=== PATIENT | female | born 1980 | race Two or more races ===

== ENCOUNTER 2017-04-18 09:44 | Emergency (ER) | payer SELFPAY ==
--- NOTE | 2017-04-18 10:02 | ER Document Report ---
ED Medical Screen (RME) - General Chief Complaint: Dizziness Stated Complaint: WEAKNESS Time Seen by Provider: 04/18/17 09:59 Mode of Arrival: Ambulatory Information source: Patient Notes: This is a 37-year-old female with a history of B12 deficiency who presents to the emergency room with dizziness and generalized weakness for the past week. Patient states that she is under a lot of stress with family. She denies any chest pain, shortness of breath, abdominal pain. She has had a hysterectomy in the past. She does take Xanax for anxiety (followed at [facility]) but has not required any for the past 3 weeks. Her only other medicine includes B12 shots ( followed up antibiotic) and Ambien for sleep. Patient denies any suicidal ideations. She does not wish to speak to a psychiatric counselor at this time. TRAVEL OUTSIDE OF THE [place] IN LAST 30 DAYS: No - Related Data Allergies/Adverse Reactions: No Known Allergies Allergy (Verified 04/18/17 09:50) Past Medical History - Past Medical History Cardiac Medical History: Reports: Hx Hypercholesterolemia Denies: Hx Coronary Artery Disease, Hx Heart Attack, Hx Hypertension Pulmonary Medical History: Denies: Hx Asthma, Hx Bronchitis, Hx COPD, Hx Pneumonia Neurological Medical History: Denies: Hx Cerebrovascular Accident, Hx Seizures Renal/ Medical History: Reports: Hx Kidney Stones. Denies: Hx Peritoneal Dialysis Musculoskeltal Medical History: Denies Hx Arthritis Psychiatric Medical History: Reports: Hx Anxiety, Hx Depression - and anxiety, Hx Post Traumatic Stress Disorder Past Surgical History: Reports: Hx Dilation and Curettage, Hx Gynecologic Surgery - D&C, Hx Hysterectomy, Hx Kidney (Renal Surgery) - lithotripsy - Immunizations Immunizations up to date: Yes Hx Diphtheria, Pertussis, Tetanus Vaccination: No - Not sure Physical Exam - Vital signs Vitals: Temp Pulse Resp BP Pulse Ox 98.8 F 78 14 136/94 H 100 04/18/17 09:50 04/18/17 09:50 04/18/17 09:50 04/18/17 09:50 04/18/17 09:50 Course - Vital Signs Vital signs: Temp Pulse Resp BP Pulse Ox 98.8 F 78 14 136/94 H 100 04/18/17 09:50 04/18/17 09:50 04/18/17 09:50 04/18/17 09:50 04/18/17 09:50
[2017-04-18 10:21] LABS: ABSOLUTE BASOPHILS # (AUTO) 0.1 10^3/uL (0.0-0.2); ABSOLUTE EOSINOPHILS # (AUTO) 0.1 10^3/uL (0.0-0.6); ABSOLUTE LYMPHOCYTES (AUTO) 2.1 10^3/uL (0.5-4.7); ABSOLUTE MONOCYTES (AUTO) 0.5 10^3/uL (0.1-1.4); ABSOLUTE NEUT (AUTO) 5.7 10^3/uL (1.7-8.2); BASOPHILS % (AUTO) 0.8 % (0-2); EOSINOPHILS % (AUTO) 1.5 % (0-6); HEMATOCRIT 44.2 % (36.0-47.0); HEMOGLOBIN 15.7 g/dL (12.0-15.5); HGB HCT DIFFERENCE 2.9; LYMPHOCYTES % (AUTO) 24.8 % (13-45); MEAN CORPUSCULAR HEMOGLOBIN 34.4 pg (27.0-33.4); MEAN CORPUSCULAR HGB CONC 35.6 g/dL (32.0-36.0); MEAN CORPUSCULAR VOLUME 97 fl (80-97); MONOCYTES % (AUTO) 6.2 % (3-13); RED BLOOD COUNT 4.56 10^6/uL (3.72-5.28); RED CELL DISTRIBUTION WIDTH 12.7 % (11.5-14.0); SEGMENTED NEUTROPHILS % (AUTO) 66.7 % (42-78); WHITE BLOOD COUNT 8.6 10^3/uL (4.0-10.5)
[2017-04-18 10:37] LABS: BLOOD UREA NITROGEN 12 mg/dL (7-20); CALCIUM 9.9 mg/dL (8.4-10.2); CARBON DIOXIDE 22 mmol/L (22-30); CHLORIDE 108 mmol/L (98-107); CREATININE RESULT 0.77 mg/dL (0.52-1.25); GLUCOSE 112 mg/dL (75-110); POTASSIUM 4.4 mmol/L (3.6-5.0); SODIUM 141.3 mmol/L (137-145)
[2017-04-18 10:38] LABS: ANION GAP 11 (5-19)
[2017-04-18 10:56] LABS: APPEARANCE,URINE CLEAR; BILIRUBIN,URINE NEGATIVE (NEGATIVE); GLUCOSE, URINE NEGATIVE (NEGATIVE); KETONES,URINE NEGATIVE (NEGATIVE); LEUKOCYTE ESTERASE,URINE NEGATIVE (NEGATIVE); NITRITE,URINE NEGATIVE (NEGATIVE); PROTEIN,URINE NEGATIVE (NEGATIVE); URINE SPECIFIC GRAVITY 1.005; UROBILINOGEN,URINE NEGATIVE mg/dL (<2.0)
--- NOTE | 2017-04-18 11:15 | ER Document Report ---
ED General - General Chief Complaint: Dizziness Stated Complaint: WEAKNESS Time Seen by Provider: 04/18/17 09:59 Mode of Arrival: Ambulatory Information source: Patient TRAVEL OUTSIDE OF THE [place] IN LAST 30 DAYS: No - HPI Patient complains to provider of: Dizziness Onset: This morning Onset/Duration: Intermittent Quality of pain: No pain Associated symptoms: Headache, Nausea Exacerbated by: Standing, Movement Relieved by: Denies Notes: Patient is a 37-year-old female presenting to the emergency room today complaining of dizziness which has been intermittent for the past few days but worsening this morning, is associated with a mild headache and nausea at times, no vomiting, no fever chills, no sinus pain or congestion, no chest pain or shortness of breath, no recent illness or injury, symptoms worsen with certain changes in position, patient states she has been eating and drinking well, and has some generalized weakness or malaise as well - Related Data Allergies/Adverse Reactions: No Known Allergies Allergy (Verified 04/18/17 09:50) Past Medical History - General Information source: Patient - Social History Smoking Status: Current Every Day Smoker Chew tobacco use (# tins/day): No Frequency of alcohol use: None Drug Abuse: None Family History: None - Past Medical History Cardiac Medical History: Reports: Hx Hypercholesterolemia Denies: Hx Coronary Artery Disease, Hx Heart Attack, Hx Hypertension Pulmonary Medical History: Denies: Hx Asthma, Hx Bronchitis, Hx COPD, Hx Pneumonia Neurological Medical History: Denies: Hx Cerebrovascular Accident, Hx Seizures Renal/ Medical History: Reports: Hx Kidney Stones. Denies: Hx Peritoneal Dialysis Musculoskeltal Medical History: Denies Hx Arthritis Psychiatric Medical History: Reports: Hx Anxiety, Hx Depression - and anxiety, Hx Post Traumatic Stress Disorder Past Surgical History: Reports: Hx Dilation and Curettage, Hx Gynecologic Surgery - D&C, Hx Hysterectomy, Hx Kidney (Renal Surgery) - lithotripsy - Immunizations Immunizations up to date: Yes Hx Diphtheria, Pertussis, Tetanus Vaccination: No - Not sure Review of Systems - Review of Systems Constitutional: Weakness EENT: No symptoms reported Cardiovascular: Dizziness Respiratory: No symptoms reported Gastrointestinal: Nausea Genitourinary: No symptoms reported Female Genitourinary: No symptoms reported Musculoskeletal: No symptoms reported Skin: No symptoms reported Hematologic/Lymphatic: No symptoms reported Neurological/Psychological: Headaches -: Yes All other systems reviewed and negative Physical Exam - Vital signs Vitals: Temp Pulse Resp BP Pulse Ox 98.8 F 78 14 136/94 H 100 04/18/17 09:50 04/18/17 09:50 04/18/17 09:50 04/18/17 09:50 04/18/17 09:50 Interpretation: Normal - General General appearance: Appears well, Alert - HEENT Head: Normocephalic, Atraumatic Eyes: Normal Pupils: PERRL - Respiratory Respiratory status: No respiratory distress Chest status: Nontender Breath sounds: Normal Chest palpation: Normal - Cardiovascular Rhythm: Regular Heart sounds: Normal auscultation Murmur: No - Abdominal Inspection: Normal Distension: No distension Bowel sounds: Normal Tenderness: Nontender Organomegaly: No organomegaly - Back Back: Normal, Nontender - Extremities General upper extremity: Normal inspection, Nontender, Normal color, Normal ROM , Normal temperature General lower extremity: Normal inspection, Nontender, Normal color, Normal ROM , Normal temperature, Normal weight bearing. No: Angela's sign - Neurological Neuro grossly intact: Yes Cognition: Normal Orientation: AAOx4 [place] Coma Scale Eye Opening: Spontaneous [place] Coma Scale Verbal: Oriented [place] Coma Scale Motor: Obeys Commands Esteban Coma Scale Total: 15 Speech: Normal Motor strength normal: LUE, RUE, LLE, RLE Sensory: Normal - Psychological Associated symptoms: Tearful - Skin Skin Temperature: Warm Skin Moisture: Dry Skin Color: Normal Course - Re-evaluation Re-evalutation: 04/18/17 13:32 Patient was tearful at time of evaluation, admits to increased stressors, denies suicidal or homicidal ideation, she is followed as [facility] psychological services, is prescribed medication which she states she does not take because she does not believe in it, lab and physical exam findings today are unremarkable, symptoms likely related to anxiety or stress, patient was advised to follow-up with her mental health provider in the next 1-2 days return if symptoms worsen, patient acknowledges understanding and agreement with this plan - Vital Signs Vital signs: Temp Pulse Resp BP Pulse Ox 98.2 F 64 17 116/89 H 100 04/18/17 11:32 04/18/17 11:32 04/18/17 11:32 04/18/17 11:32 04/18/17 11:32 - Laboratory Result Diagrams: 04/18/17 10:12 04/18/17 10:12 Laboratory results interpreted by me: 04/18/17 04/18/17 10:12 10:12 Hgb 15.7 H MCH 34.4 H Chloride 108 H Glucose 112 H Discharge - Discharge Clinical Impression: Dizziness, Anxiety Condition: Stable Disposition: HOME, SELF-CARE Instructions: Anxiety ([facility]), Dizziness ([facility]) Additional Instructions: Follow up with your primary care provider and mental health provider in one to 2 days. Return to the emergency room immediately if symptoms worsen or any additional concerns. Prescriptions: Diazepam [Valium 5 mg Tablet] 2.5 mg PO QIDP PRN #10 tablet PRN Reason: Forms: Return to Work Referrals: ENDER HARDY PA-C [Primary Care Provider] - Follow up as needed
[2017-04-18 11:32] VITALS: BP 116/89
== END 2017-04-18 11:32 | disposition home or self-care (01) ==
LOC: ER 09:44
DX: R42 Dizziness and giddiness (principal); F41.9 Anxiety disorder, unspecified; F17.200 Nicotine dependence, unspecified, uncomplicated
CPT/HCPCS: 36415; 80048; 81001; 81025; 84443; 85025; 99284

== ENCOUNTER 2017-08-12 17:14 | Emergency (ER) | payer OTHER ==
[2017-08-12] MEDS ORDERED: METHOCARBAMOL 500 MG TABLET PO ONE (17:59)
[2017-08-12] MEDS ORDERED: ACETAMINOPHEN 325 MG TABLET PO ONE (17:59)
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
[2017-08-12 19:20] VITALS: BP 122/76
== END 2017-08-12 19:44 | disposition home or self-care (01) ==
LOC: ER 17:14
DX: S16.1XXA Strain of muscle, fascia and tendon at neck level, initial encounter (principal); R51 Headache; V89.2XXA Person injured in unspecified motor-vehicle accident, traffic, initial encounter; F17.200 Nicotine dependence, unspecified, uncomplicated; E78.00 Pure hypercholesterolemia, unspecified; Z87.442 Personal history of urinary calculi; Z90.710 Acquired absence of both cervix and uterus
CPT/HCPCS: 70450; 72125; 99284

== ENCOUNTER 2017-11-18 23:07 | Emergency (ER) | payer BC ==
[2017-11-19] MEDS ORDERED: ONDANSETRON HCL INJ/PF 4 MG/2 ML SDV IV ONE (00:37)
[2017-11-19] MEDS ORDERED: MORPHINE SULFATE 10 MG/ML INJ IV ONE (00:37)
[2017-11-19] MEDS ORDERED: NORMAL SALINE 1000 ML 1,000 ML IV ONE (00:37)
[2017-11-19] MEDS ORDERED: FAMOTIDINE 20 MG TABLET PO ONE (00:37)
[2017-11-19] MEDS ORDERED: KETOROLAC TROMETHAMINE INJ/PF 30 MG/1 ML SDV IV ONE (00:38)
--- NOTE | 2017-11-19 00:48 | ER Document Report ---
ED General - General Chief Complaint: Post Surgical Pain Stated Complaint: BREAST PAIN Time Seen by Provider: 11/19/17 00:25 Mode of Arrival: Ambulatory Information source: Patient TRAVEL OUTSIDE OF THE [place] IN LAST 30 DAYS: No - HPI Notes: Patient is a 37-year-old female presents to the emergency department with report that she had a lump in her left breast and had a biopsy taken earlier today and since that time she has had pain through the breast with mild amount of swelling and some bleeding. She states she feels nauseated and dizzy and lightheaded. She has drank some fluids since the surgical procedure, but has not eaten anything. The patient denies any deep or chest pain or dyspnea or abdominal pain. She reports no vomiting or diarrhea. She is not on any anticoagulants. - Related Data Allergies/Adverse Reactions: No Known Allergies Allergy (Verified 04/18/17 09:50) Past Medical History - General Information source: Patient - Social History Smoking Status: Former Smoker Frequency of alcohol use: None Drug Abuse: None Lives with: Friend Family History: None - Past Medical History Cardiac Medical History: Reports: Hx Hypercholesterolemia Denies: Hx Coronary Artery Disease, Hx Heart Attack, Hx Hypertension Pulmonary Medical History: Denies: Hx Asthma, Hx Bronchitis, Hx COPD, Hx Pneumonia Neurological Medical History: Denies: Hx Cerebrovascular Accident, Hx Seizures Renal/ Medical History: Reports: Hx Kidney Stones. Denies: Hx Peritoneal Dialysis Musculoskeltal Medical History: Denies Hx Arthritis Psychiatric Medical History: Reports: Hx Anxiety, Hx Depression - and anxiety, Hx Post Traumatic Stress Disorder Past Surgical History: Reports: Hx Dilation and Curettage, Hx Gynecologic Surgery - D&C, Hx Hysterectomy, Hx Kidney (Renal Surgery) - lithotripsy - Immunizations Immunizations up to date: Yes Hx Diphtheria, Pertussis, Tetanus Vaccination: No - Not sure Review of Systems - Review of Systems Notes: REVIEW OF SYSTEMS: CONSTITUTIONAL : Denies fever, chills, or sweats. EENT: Denies eye, ear, throat, or mouth pain or symptoms. Denies nasal or sinus congestion or discharge. Denies throat, tongue, or mouth swelling or difficulty swallowing. CARDIOVASCULAR: Denies ches t pain. Denies palpitations or racing or irregular heart beat. Denies ankle edema. RESPIRATORY: Denies cough, cold, or chest congestion. Denies shortness of breath, difficulty breathing, or wheezing. GASTROINTESTINAL: Denies abdominal pain or distention. Denies vomiting, or diarrhea. Denies blood in vomitus, stools, or per rectum. Denies black, tarry stools. Denies constipation. GENITOURINARY: Denies difficulty urinating, painful urination, burning, frequency, blood in urine, or discharge. FEMALE GENITOURINARY: Denies vaginal bleeding, heavy or abnormal periods, irregular periods. Denies vaginal discharge or odor. MUSCULOSKELETAL: Denies back or neck pain or stiffness. Denies joint pain or swelling. SKIN: Denies rash or sores. HEMATOLOGIC : Denies easy bruising or bleeding. LYMPHATIC: Denies swollen, enlarged glands. NEUROLOGICAL: Denies confusion or altered mental status. Denies passing out or loss of consciousness. Denies headache. Denies weakness or paralysis or loss of use of either side. Denies problems with gait or speech. Denies sensory loss, numbness, or tingling. Denies seizures. PSYCHIATRIC: Denies anxiety or stress. Denies depression, suicidal ideation, or homicidal ideation. ALL OTHER SYSTEMS REVIEWED AND NEGATIVE. Dictation was performed using [employer] voice recognition software Physical Exam - Vital signs Vitals: Temp Pulse Resp BP Pulse Ox 98.4 F 77 16 106/73 96 11/18/17 23:08 11/18/17 23:08 11/18/17 23:08 11/18/17 23:08 11/18/17 23:08 - Notes Notes: PHYSICAL EXAMINATION: GENERAL: no acute distress. Patient is somewhat pale. HEAD: Atraumatic, normocephalic. EYES: Pupils equal round and reactive to light, extraocular movements intact, conjunctiva are normal. ENT: Nares patent, oropharynx clear without exudates. Dry mucous membranes. NECK: Normal range of motion, supple without lymphadenopathy LUNGS: Breath sounds clear to auscultation bilaterally and equal. No wheezes rales or rhonchi. HEART: Regular rate and rhythm without murmurs ABDOMEN: Soft, nontender, nondistended abdomen. No guarding, no rebound. No masses appreciated. Female : deferred Musculoskeletal: Normal range of motion, no pitting or edema. No cyanosis. NEUROLOGICAL: Cranial nerves grossly intact. Normal speech, normal gait. Normal sensory, motor exams PSYCH: Normal mood, normal affect. SKIN: Warm, Dry, normal turgor, examination patient's breasts shows a biopsy site left lateral quadrant of the breast with very minimal evidence for a hematoma and no active bleeding but some evidence for previous bleeding. The surgical biopsy site otherwise appears clear. There is no evidence for infection there is no supraclavicular or axillary adenopathy noted. Course - Re-evaluation Re-evalutation: 11/19/17 00:50 Patient was given normal saline bolus 1 L and was given medication for nausea and for pain and she was given Pepcid for mild gastritis. 11/19/17 02:37 After medications for pain and for nausea the patient had adequate relief and felt stable for discharge. No further significant bleeding was noted. There is no evidence for anemia Her diabetes or renal insufficiency or suggestion for abscess. - Vital Signs Vital signs: Temp Pulse Resp BP Pulse Ox 98.4 F 77 16 106/73 96 11/18/17 23:08 11/18/17 23:08 11/18/17 23:08 11/18/17 23:08 11/18/17 23:08 - Laboratory Result Diagrams: 11/19/17 01:10 11/19/17 01:10 Laboratory results interpreted by me: 11/19/17 01:10 Chloride 108 H Glucose 111 H - EKG Interpretation by Ky EKG shows normal: Sinus rhythm Additional EKG results interpreted by ut: 11/19/17 02:30 EKG as interpreted by ut showed normal mildly bradycardic sinus rhythm heart rate of 51. No gross evidence for acute DC or ischemia noted. No significant change from previous EKG reviewed from 01/17/16. Discharge - Discharge Clinical Impression: Nausea Post-operative complication Qualifiers: Surgical complication system/body Area: skin Surgical complication type: hematoma Procedure type: non-dermatologic Qualified Code(s): L76.32 - Postprocedural hematoma of skin and subcutaneous tissue following other procedure Condition: Stable Disposition: HOME, SELF-CARE Instructions: Dressing Instructions for Open Wounds ([facility]) Additional Instructions: Where a comfortable bra. Take ibuprofen as directed for pain. Return to the emergency department in case of fever or severe swelling. Prescriptions: Hydrocodone/Acetaminophen [Mayer 5-325 mg Tablet] 1 tab PO Q4HP PRN #20 tablet PRN Reason: Ondansetron [Zofran Odt 4 mg Tablet] 1 tab PO Q8HP PRN #15 tab.rapdis PRN Reason: For Nausea/Vomiting Referrals: RJ GARZA MD [ACTIVE STAFF] - Follow up as needed
[2017-11-19 01:28] LABS: ABSOLUTE EOSINOPHILS # (AUTO) 0.1 10^3/uL (0.0-0.6); ABSOLUTE LYMPHOCYTES (AUTO) 2.1 10^3/uL (0.5-4.7); ABSOLUTE MONOCYTES (AUTO) 0.7 10^3/uL (0.1-1.4); ABSOLUTE NEUT (AUTO) 7.5 10^3/uL (1.7-8.2); BASOPHILS % (AUTO) 0.4 % (0-2); EOSINOPHILS % (AUTO) 1.1 % (0-6); HEMATOCRIT 41.9 % (36.0-47.0); HEMOGLOBIN 14.4 g/dL (12.0-15.5); LYMPHOCYTES % (AUTO) 20.4 % (13-45); MEAN CORPUSCULAR HGB CONC 34.3 g/dL (32.0-36.0); MEAN CORPUSCULAR VOLUME 96 fl (80-97); MONOCYTES % (AUTO) 6.6 % (3-13); PLATELET COUNT 287 10^3/uL (150-450); RED BLOOD COUNT 4.36 10^6/uL (3.72-5.28); RED CELL DISTRIBUTION WIDTH 12.4 % (11.5-14.0); SEGMENTED NEUTROPHILS % (AUTO) 71.5 % (42-78); TOTAL CELLS COUNTED % (AUTO) 100 %; WHITE BLOOD COUNT 10.5 10^3/uL (4.0-10.5)
[2017-11-19 01:43] LABS: ANION GAP 9 (5-19); BLOOD UREA NITROGEN 13 mg/dL (7-20); CALCIUM 9.7 mg/dL (8.4-10.2); CARBON DIOXIDE 25 mmol/L (22-30); CHLORIDE 108 mmol/L (98-107); GLUCOSE 111 mg/dL (75-110); POTASSIUM 3.9 mmol/L (3.6-5.0); SODIUM 141.5 mmol/L (137-145)
[2017-11-19] MEDS ORDERED: HYDROCODONE/ACETAMINOPHEN 5-325 MG (6 TAB/ER DISP) PO PRN (02:38)
[2017-11-19] MEDS ORDERED: ONDANSETRON ODT 4 MG TAB (6 TAB/ER DISP) PO PRN (02:39)
[2017-11-19 03:02] VITALS: BP 122/82
--- NOTE | 2017-11-19 10:43 | EKG REPORT ---
SEVERITY:- NORMAL ECG - SINUS RHYTHM : Confirmed by: Hu Tran 19-Nov-2017 10:42:29
== END 2017-11-19 03:02 | disposition home or self-care (01) ==
LOC: ER 23:07
DX: L76.32 Postprocedural hematoma of skin and subcutaneous tissue following other procedure (principal); Y83.8 Other surgical procedures as the cause of abnormal reaction of the patient, or of later complication, without mention of misadventure at the time of the procedure; K29.70 Gastritis, unspecified, without bleeding; R00.1 Bradycardia, unspecified; R11.0 Nausea; R42 Dizziness and giddiness; Z87.891 Personal history of nicotine dependence
CPT/HCPCS: 93005; 99284; 96361; 96374; 96375; 36415; 85025; 80048; 93010; J1885; J2270; J2405; J7030

== ENCOUNTER 2017-12-26 10:37 | Day surgery (SDC) | payer BC ==
[2017-12-19 09:54] LABS: HEMATOCRIT 42.4 % (36.0-47.0); HEMOGLOBIN 14.3 g/dL (12.0-15.5); MEAN CORPUSCULAR HEMOGLOBIN 32.3 pg (27.0-33.4); MEAN CORPUSCULAR HGB CONC 33.8 g/dL (32.0-36.0); MEAN CORPUSCULAR VOLUME 96 fl (80-97); PLATELET COUNT 296 10^3/uL (150-450); RED BLOOD COUNT 4.44 10^6/uL (3.72-5.28); RED CELL DISTRIBUTION WIDTH 12.9 % (11.5-14.0); WHITE BLOOD COUNT 9.2 10^3/uL (4.0-10.5)
[~2017-12-26 10:37] MED LIST: CEFAZOLIN SODIUM 2 GM in DEXTROSE 5%-WATER 100 ML IV PRN; LACTATED RINGERS 1000 ML IV PRN
[2017-12-26] MEDS ORDERED: LIDOCAINE 1% INJ-PF (10 MG/ML) 30 ML SDV ONE (11:58)
[2017-12-26] MEDS ORDERED: BUPIVACAINE HCL 0.25 % INJ/PF (2.5 MG/1 ML) 30 ML VIAL ONE (11:59)
[2017-12-26] MEDS ORDERED: LIDOCAINE 2% INJ-PF (20 MG/ML) 10 ML AMPUL ONE (12:31)
[2017-12-26] MEDS ORDERED: KETAMINE HCL INJ 500 MG/10 ML VIAL ONE (12:31)
[2017-12-26] MEDS ORDERED: FENTANYL CITRATE INJ/PF 100 MCG/2 ML AMPUL ONE (12:31)
[2017-12-26] MEDS ORDERED: MIDAZOLAM 2 MG/2 ML INJ ONE (12:31)
[2017-12-26] MEDS ORDERED: PROPOFOL INJ 200 MG/20 ML VIAL IV ONE (12:32)
[2017-12-26] MEDS ORDERED: ACETAMINOPHEN 100 ML IV ONE ×2 (12:32→13:25)
[2017-12-26] MEDS ORDERED: EPHEDRINE SULFATE INJ 50 MG/1 ML AMPULE ONE (12:32)
[2017-12-26] MEDS ORDERED: ONDANSETRON HCL INJ/PF 4 MG/2 ML SDV IV PRN (13:32)
[2017-12-26] MEDS ORDERED: MORPHINE SULFATE 10 MG/ML INJ IV PRN (13:32)
[2017-12-26] MEDS ORDERED: DIPHENHYDRAMINE HCL 50 MG/ML VIAL IV PRN (13:32)
[2017-12-26] MEDS ORDERED: PROMETHAZINE HCL INJ 25 MG/1 ML VIAL IV PRN ×2 (13:32)
[2017-12-26] MEDS ORDERED: MEPERIDINE HCL/PF INJ 25 MG/1 ML DISP.SYRIN IV PRN (13:32)
[2017-12-26] MEDS ORDERED: FENTANYL CITRATE INJ/PF 100 MCG/2 ML AMPUL IV PRN ×3 (13:32)
[2017-12-26] MEDS ORDERED: PROMETHAZINE HCL INJ 25 MG/1 ML VIAL ONE (14:12)
--- NOTE | 2017-12-26 14:50 | Operative Report ---
Nonrecallable Operative Report DATE OF SURGERY: 12/26/17 PREOPERATIVE DIAGNOSIS: Giant fibroadenoma of the left breast POSTOPERATIVE DIAGNOSIS: Same as above OPERATION: Excision of a giant fibroadenoma of the left breast SURGEON: JUANCARLOS BARTHOLOMEW ANESTHESIA: LMAC TISSUE REMOVED OR ALTERED: Giant fibroadenoma of the left breast (5 x 5 cm lesion with additional 2 x 3 cm lesion) COMPLICATIONS: None apparent ESTIMATED BLOOD LOSS: Minimal PROCEDURE: Drains/implants: None. After informed consent was obtained, the patient was laid in the supine position in the operating room. Area of the left breast was prepped and draped in a normal sterile fashion. A curvilinear incision was created on the left breast, approximately 4 cm in total length. The large mass was identified and excised from the surrounding tissue using Bovie electrocautery. The mass was well-circumscribed, and easily accessible. There were 2 separate portions of the mass. One was 5 x 5 cm, and the other was 2 x 3 cm. The 2 nodules were immediately adjacent to one another, constituting the abnormality seen on ultrasound. Once the 2 lobes of the mass were excised, hemostasis was achieved using Bovie electrocautery and 3-0 Vicryl suture. The soft tissue was then closed using 3-0 Vicryl suture in simple interrupted fashion. The overlying skin was closed using 4-0 Vicryl Rapide suture in subcuticular fashion. All sponge, instrument, and needle counts were correct 2. Addition: Stable.
[2017-12-26 16:06] VITALS: BP 139/94
[2017-12-26] MEDS ORDERED: METOCLOPRAMIDE HCL INJ/PF 10 MG/2 ML SDV ONE (16:09)
[2017-12-26] MEDS ORDERED: DEXAMETHASONE SOD PHOSPHATE INJ 4 MG/1 ML VIAL ONE (16:09)
[2017-12-26] MEDS ORDERED: LIDOCAINE 2% INJ-PF (20 MG/ML) 2 ML AMPUL ONE (16:09)
[2017-12-26] MEDS ORDERED: GLYCOPYRROLATE INJ 0.4 MG/2 ML VIAL ONE (16:09)
[2017-12-26] MEDS ORDERED: KETOROLAC TROMETHAMINE 60 MG/2 ML SDV ONE (16:09)
== END 2017-12-26 16:15 | disposition home or self-care (01) ==
LOC: OROUT 10:37
PROVIDERS: ATTEND Surgery
DX: D24.2 Benign neoplasm of left breast (principal); G47.00 Insomnia, unspecified; F17.210 Nicotine dependence, cigarettes, uncomplicated; Z79.899 Other long term (current) drug therapy
CPT/HCPCS: 36415; 85027; 88307 ×2; 88342; 19120; J2250; J0690; J1100; J1885; J3010; J3490 ×4; J2765; J2550; J2704; J0131; 400

== ENCOUNTER 2018-03-14 10:48 | Emergency (ER) | payer BC ==
[2018-03-14 10:55] VITALS: BP 127/90
[2018-03-14] MEDS ORDERED: SUCRALFATE SUSP 1 GM/10 ML UDCUP PO ONE (11:39)
[2018-03-14] MEDS ORDERED: IPRATROPIUM/ALBUTEROL 0.5-2.5 MG/3 ML AMPUL NEB ONE (11:39)
--- NOTE | 2018-03-14 11:45 | ER Document Report ---
ED General - General Chief Complaint: Allergic Reaction Stated Complaint: SKIN ISSUE Time Seen by Provider: 03/14/18 11:30 Notes: Chief complaint: Possible allergic reaction History of complain:( obtained from----patient) 38 years old female who was started with Lamictal 3 weeks ago, 2 weeks ago started having slight soreness in the throat went away, week later of the soreness increased in intensity overall feeling with cough on and off largely dry cough. And sometimes difficulty in breathing and wheezing. Had a few bumps of small rash over the left side of the face for the last few days.. She is a smoker. Lamictal was given for bipolar disorder. There is no diffuse rash throughout the whole body. Onset: As above Duration: As above Severity: Mild to moderate Quality: Burning Context: As above Exacerbating factor and relieving factors: None REVIEW OF SYSTEMS: CONSTITUTIONAL : Denies fever, chills, or sweats. Denies recent illness. EENT: As per history of complain, difficulty swallowing. CARDIOVASCULAR: Denies chest pain. Denies palpitations or racing or irregular heart beat. Denies ankle edema. RESPIRATORY: Denies cough, cold, or chest congestion. Denies shortness of breath, difficulty breathing, or wheezing. GASTROINTESTINAL: Denies distention. Denies nausea, vomiting, or diarrhea. Denies blood in vomitus, stools, or per rectum. Denies black, tarry stools. Denies constipation. GENITOURINARY: Denies difficulty urinating, painful urination, burning, frequency, blood in urine, or discharge. FEMALE GENITOURINARY: Denies vaginal bleeding, heavy or abnormal periods, irregular periods. Denies vaginal discharge or odor. MUSCULOSKELETAL: Denies back or neck pain or stiffness. Denies joint pain or swelling. SKIN: As per history of complain HEMATOLOGIC : Denies easy bruising or bleeding. LYMPHATIC: Denies swollen, enlarged glands. NEUROLOGICAL: Denies confusion or altered mental status. Denies passing out or loss of consciousness. Denies dizziness or lightheadedness. Denies headache. Denies weakness or paralysis or loss of use of either side. Denies problems with gait or speech. Denies sensory loss, numbness, or tingling. Denies seizures. PSYCHIATRIC: Denies anxiety or stress. Denies depression, suicidal ideation, or homicidal ideation. ALL OTHER SYSTEMS REVIEWED AND NEGATIVE. PHYSICAL EXAMINATION: GENERAL: Well-appearing, well-nourished and in no acute distress. HEAD: Atraumatic, normocephalic. EYES: Pupils equal round and reactive to light, extraocular movements intact, conjunctiva are normal. ENT: Nares patent, oropharynx diffusely erythematous with scattered aphthous ulcers noted. No exudates no tonsillar enlargement.. Moist mucous membranes. NECK: Normal range of motion, supple without lymphadenopathy. LUNGS: Breath sounds decreased bilaterally to auscultation bilaterally and equal. No wheezes rales or rhonchi. HEART: Regular rate and rhythm without murmurs ABDOMEN: Soft, nontender, nondistended abdomen. No guarding, no rebound. No masses appreciated. Examination of genitals-deferred Musculoskeletal: Normal range of motion, no pitting or edema. No cyanosis. NEUROLOGICAL: Cranial nerves grossly intact. Normal speech, normal gait. Normal sensory, motor exams PSYCH: Normal mood, normal affect. SKIN: Papular diffuse rash was noted on the left side of the face that is about 305 looks like insect bite rash. No diffuse erythema or Bates-Julius type of rash. Dictation was performed using [employer] voice recognition software TRAVEL OUTSIDE OF THE [place] IN LAST 30 DAYS: No - HPI Notes: Dictated - Related Data Allergies/Adverse Reactions: No Known Allergies Allergy (Verified 03/14/18 11:27) Past Medical History - General Information source: Patient - Social History Smoking Status: Current Every Day Smoker Cigarette use (# per day): No Chew tobacco use (# tins/day): No Smoking Education Provided: No Frequency of alcohol use: Rare Drug Abuse: None Lives with: Family Family History: None, Reviewed & Not Pertinent - Past Medical History Cardiac Medical History: Reports: Hx Hypercholesterolemia Denies: Hx Coronary Artery Disease, Hx Heart Attack, Hx Hypertension Pulmonary Medical History: Denies: Hx Asthma, Hx Bronchitis, Hx COPD, Hx Pneumonia Neurological Medical History: Denies: Hx Cerebrovascular Accident, Hx Seizures Renal/ Medical History: Reports: Hx Kidney Stones. Denies: Hx Peritoneal Dialysis Musculoskeletal Medical History: Denies Hx Arthritis Psychiatric Medical History: Reports: Hx Anxiety, Hx Depression - and anxiety, Hx Post Traumatic Stress Disorder Past Surgical History: Reports: Hx Dilation and Curettage, Hx Gynecologic Surgery - D&C, Hx Hysterectomy, Hx Kidney (Renal Surgery) - lithotripsy - Immunizations Immunizations up to date: Yes Hx Diphtheria, Pertussis, Tetanus Vaccination: Yes - Not sure Review of Systems - Review of Systems Notes: Dictated Physical Exam - Vital signs Vitals: Temp Pulse Resp BP Pulse Ox 98.6 F 82 18 127/90 H 99 03/14/18 10:54 03/14/18 10:54 03/14/18 10:54 03/14/18 10:54 03/14/18 10:54 - Notes Notes: Dictated Course - Vital Signs Vital signs: Temp Pulse Resp BP Pulse Ox 98.6 F 82 18 127/90 H 99 03/14/18 10:54 03/14/18 10:54 03/14/18 10:54 03/14/18 10:54 03/14/18 10:54 - Laboratory Result Diagrams: 03/14/18 11:50 Discharge - Discharge Clinical Impression: Bronchitis, Rash, Reactive airway disease that is not asthma Pharyngitis Qualifiers: Pharyngitis/tonsillitis etiology: unspecified etiology Qualified Code(s): J02.9 - Acute pharyngitis, unspecified Condition: Fair Disposition: HOME, SELF-CARE Instructions: Reactive Airway Disease ([facility]), Sore Throat ([facility]) Prescriptions: Albuterol Sulfate [Proair HFA] 1 - 2 puff IH Q4 PRN #1 inhaler PRN Reason: Amoxicillin 500 mg PO TID #30 capsule Fluticasone Propionate [Flovent Diskus 250 mcg] 1 puff IH BID #1 diskus Sucralfate [Carafate Susp 1 Gm/10 Ml Udcup] 1 gm PO Q6 PRN #200 udc PRN Reason: Referrals: ODETTE PALM DO [Primary Care Provider] - Follow up as needed
[2018-03-14] MEDS ORDERED: SUCRALFATE 1 GM TABLET PO ONE (11:58)
[2018-03-14 12:03] LABS: ABSOLUTE BASOPHILS # (AUTO) 0.1 10^3/uL (0.0-0.2); ABSOLUTE EOSINOPHILS # (AUTO) 0.1 10^3/uL (0.0-0.6); ABSOLUTE LYMPHOCYTES (AUTO) 2.4 10^3/uL (0.5-4.7); ABSOLUTE MONOCYTES (AUTO) 0.6 10^3/uL (0.1-1.4); ABSOLUTE NEUT (AUTO) 6.5 10^3/uL (1.7-8.2); BASOPHILS % (AUTO) 0.6 % (0-2); EOSINOPHILS % (AUTO) 1.1 % (0-6); HEMATOCRIT 44.3 % (36.0-47.0); HEMOGLOBIN 14.9 g/dL (12.0-15.5); LYMPHOCYTES % (AUTO) 24.8 % (13-45); MEAN CORPUSCULAR HEMOGLOBIN 32.1 pg (27.0-33.4); MEAN CORPUSCULAR HGB CONC 33.7 g/dL (32.0-36.0); MEAN CORPUSCULAR VOLUME 95 fl (80-97); MONOCYTES % (AUTO) 6.6 % (3-13); PLATELET COUNT 318 10^3/uL (150-450); RED BLOOD COUNT 4.65 10^6/uL (3.72-5.28); RED CELL DISTRIBUTION WIDTH 12.9 % (11.5-14.0); SEGMENTED NEUTROPHILS % (AUTO) 66.9 % (42-78); TOTAL CELLS COUNTED % (AUTO) 100 %; WHITE BLOOD COUNT 9.7 10^3/uL (4.0-10.5)
[2018-03-14 12:51] LABS: ERYTHROCYTE SEDIMENTATION RATE 15 mm/hr (0-20)
== END 2018-03-14 13:15 | disposition home or self-care (01) ==
LOC: ER 10:48
DX: J40 Bronchitis, not specified as acute or chronic (principal); J98.8 Other specified respiratory disorders; J02.9 Acute pharyngitis, unspecified; R05 Cough; R21 Rash and other nonspecific skin eruption; F17.200 Nicotine dependence, unspecified, uncomplicated; F31.9 Bipolar disorder, unspecified; Z79.899 Other long term (current) drug therapy
CPT/HCPCS: 94640; 99283; 36415; 87070; 87880; 85025; 85652; J7620

== ENCOUNTER 2018-06-17 08:45 | Day surgery (SDC) | payer BC ==
[~2018-06-17 08:45] MED LIST changes: +AMPICILLIN SODIUM 2 GM in NORMAL SALINE 100 ML IV PRN; -CEFAZOLIN SODIUM 2 GM in DEXTROSE 5%-WATER 100 ML IV PRN; -LACTATED RINGERS 1000 ML IV PRN; +OXYMETAZOLINE HCL 0.05% NASAL SPRAY 15 ML BOTTLE ONE
[2018-06-17] MEDS ORDERED: MIDAZOLAM 2 MG/2 ML INJ ONE (09:03)
[2018-06-17] MEDS ORDERED: ONDANSETRON HCL INJ/PF 4 MG/2 ML SDV ONE (09:03)
[2018-06-17] MEDS ORDERED: FENTANYL CITRATE INJ/PF 100 MCG/2 ML AMPUL ONE (09:03)
[2018-06-17] MEDS ORDERED: DEXAMETHASONE SOD PHOS INJ 10 MG/1 ML VIAL ONE (09:04)
[2018-06-17] MEDS ORDERED: ACETAMINOPHEN 1,000 MG/100 ML RTUPB IV ONE (09:04)
[2018-06-17] MEDS ORDERED: SUCCINYLCHOLINE CHLORIDE INJ 200 MG/10 ML VIAL ONE (09:04)
[2018-06-17] MEDS ORDERED: PROPOFOL INJ 200 MG/20 ML VIAL IV ONE (09:04)
[2018-06-17] MEDS ORDERED: ALBUTEROL SULFATE 0.083% NEB 2.5 MG/3 ML AMPUL NEB ONE (09:12)
[2018-06-17] MEDS ORDERED: SCOPOLAMINE HYDROBROMIDE 1.5 MG PATCH.TD72 TD ONE (10:00)
[2018-06-17] MEDS: FENTANYL CITRATE INJ/PF 100 MCG/2 ML AMPUL ONE ×2 (10:50→11:15)
--- NOTE | 2018-06-17 11:01 | SURGICARE OPERATIVE REPORT E ---
[facility] Operative Report NAME: GEORGES SALDANA AGE: 38Y DATE OF SURGERY: 06/17/2018 ROOM: HISTORY: A 38-year-old female who presents with a history of chronic tonsillitis. She presents today for a tonsillectomy. Informed consent was obtained from the patient. PREOPERATIVE DIAGNOSIS: CHRONIC TONSILLITIS. POSTOPERATIVE DIAGNOSIS: CHRONIC TONSILLITIS. PROCEDURE: Tonsillectomy. SURGEON: DORA CHAVEZ MD ANESTHESIA: General by endotracheal intubation. DESCRIPTION OF PROCEDURE: After receiving informed consent from the patient, she was taken to the operating room and placed supine on the operating room table. After successful induction and intubation by Anesthesia, the patient was then turned 90 degrees, placed in Trendelenburg. Shoulder roll placed, head drape placed, McIvor mouth gag inserted atraumatically into the oral cavity. This was then opened. The soft palate was palpated and found to be normal. Red catheters were inserted down each nasal cavity bilaterally to elevate the soft palate. The right tonsil was grasped with a tonsil tenaculum and pulled medially, dissected free from its tonsillar fossa using Bovie electrocautery. Hemostasis was obtained with suction and Bovie electrocautery. A similar procedure was done on the left side. Both tonsils were removed. Tonsils were 2+ in size. The nasopharynx, oral cavity, and oropharynx were irrigated with copious amounts of normal saline. No bleeding was noted. Orogastric tube inserted into the stomach. Gastric contents were aspirated. The McIvor mouth gag was then let down, reopened, no bleeding was noted. This along with the red catheters were removed from the patient. The patient was given back to Anesthesia who successfully extubated the patient without any complications. Estimated blood loss 5 mL. The fluids about 400 mL of crystalloid. The patient was then transferred to the Postanesthesia Care Unit in stable condition with spontaneous respiration and no complication. DICTATING PHYSICIAN: DORA CHAVEZ M.D. [id number] PHY#: [id number] ID: [id number] JOB#: [id number] ACCT: [id number] cc:DORA CHAVEZ MD >
== END 2018-06-17 12:00 | disposition home or self-care (01) ==
LOC: SC 08:45
PROVIDERS: ATTEND Otolaryngology
DX: J35.01 Chronic tonsillitis (principal); K21.9 Gastro-esophageal reflux disease without esophagitis; E78.5 Hyperlipidemia, unspecified; K76.0 Fatty (change of) liver, not elsewhere classified; F32.9 Major depressive disorder, single episode, unspecified; F17.210 Nicotine dependence, cigarettes, uncomplicated; Z79.899 Other long term (current) drug therapy
CPT/HCPCS: 88304 ×2; 42826; J0290; J2250; J3010; J0330; J2405; J2704; J1100; J0131; 170; J3490

== ENCOUNTER 2018-10-02 14:36 | Emergency (ER) | payer BC ==
[2018-10-02 14:42] VITALS: BP 135/93
--- NOTE | 2018-10-02 14:53 | ER Document Report ---
HPI - HPI Patient complains to provider of: thumb injury Time Seen by Provider: 10/02/18 14:46 Onset: Yesterday Onset/Duration: Sudden Quality of pain: Throbbing Severity: Moderate Pain Level: 3 Context: Patient presents emergency department with complaints of right distal thumb pain. Patient reports she was going down the steps yesterday and hit her thumb nail which caused her thumb to hyperextend. She reports pain and swelling today. Denies past medical history of injury to the thumb. Patient complains of pain with movement. Reports she took ibuprofen 2 hours ago which took the edge of the pain. Patient is right-hand dominant Associated Symptoms: None Exacerbated by: Movement Relieved by: Denies Similar symptoms previously: No Recently seen / treated by doctor: No - REPRODUCTIVE Reproductive: DENIES: : Past Medical History - General Information source: Patient - Social History Smoking Status: Current Every Day Smoker Cigarette use (# per day): Yes Frequency of alcohol use: None Drug Abuse: None Occupation: slef employed [employer] Family History: None, Reviewed & Not Pertinent Patient has suicidal ideation: No Patient has homicidal ideation: No - Past Medical History Cardiac Medical History: Reports: Hx Hypercholesterolemia Denies: Hx Coronary Artery Disease, Hx Heart Attack, Hx Hypertension Pulmonary Medical History: Denies: Hx Asthma, Hx Bronchitis, Hx COPD, Hx Pneumonia Neurological Medical History: Denies: Hx Cerebrovascular Accident, Hx Seizures Renal/ Medical History: Reports: Hx Kidney Stones. Denies: Hx Peritoneal Dialysis GI Medical History: Denies: Hx Hepatitis, Hx Hiatal Hernia, Hx Ulcer Musculoskeletal Medical History: Denies Hx Arthritis Psychiatric Medical History: Reports: Hx Anxiety, Hx Depression - and anxiety, Hx Post Traumatic Stress Disorder Infectious Medical History: Denies: Hx Hepatitis Past Surgical History: Reports: Hx Dilation and Curettage, Hx Gynecologic Surgery - D&C, Hx Hysterectomy, Hx Kidney (Renal Surgery) - lithotripsy. Denies: Hx Mastectomy, Hx Open Heart Surgery, Hx Pacemaker - Immunizations Immunizations up to date: Yes Hx Diphtheria, Pertussis, Tetanus Vaccination: Yes - Not sure Vertical Provider Document - CONSTITUTIONAL Agree With Documented VS: Yes Exam Limitations: No Limitations General Appearance: WD/WN, No Apparent Distress - INFECTION CONTROL TRAVEL OUTSIDE OF THE [place] IN LAST 30 DAYS: No - HEENT HEENT: Atraumatic - NECK Neck: Supple - RESPIRATORY Respiratory: No Respiratory Distress - CARDIOVASCULAR Cardiovascular: Regular Rate - MUSCULOSKELETAL/EXTREMETIES Musculoskeletal/Extremeties: Tender - right distal thumb ttp, swollen, cap refill normal, good radial pulse Course - Re-evaluation Re-evalutation: 10/02/18 15:38 Patient instructed on nondisplaced fracture right thumb. She was instructed on plan of care to include splint and ibuprofen. She was instructed on signs and symptoms to return for. She verbalized understanding to all instructions. Dictation of this chart was performed using voice recognition software; therefore, there may be some unintended grammatical errors. - Vital Signs Vital signs: Temp Pulse Resp BP Pulse Ox 98.8 F 89 18 135/93 H 97 10/02/18 14:40 10/02/18 14:40 10/02/18 14:40 10/02/18 14:40 10/02/18 14:40 - Diagnostic Test Radiology reviewed: Image reviewed, Reports reviewed - Exam Information Accession Number: [id number] Modality: CR Body Part: RFINGERS Description: FINGER RIGHT Performed Date: 10/02/2018 15:03:19 Reason for Study: ITS.REASON Final Report EXAM DESCRIPTION: FINGER RIGHT COMPLETED DATE/TIME: 10/02/2018 3:09 pm REASON FOR STUDY: pain, hyperextended thumb COMPARISON: None. NUMBER OF VIEWS: Three views. TECHNIQUE: AP, lateral, and oblique images acquired of the right thumb. LIMITATIONS: None. FINDINGS: MINERALIZATION: Normal. BONES: Acute nondisplaced fracture along the palmar and radial aspect of the right thumb distal phalanx at the interphalangeal joint. Fractures marked with arrows. Incidental finding of benign sesamoid bones of the 1st MCP joint the thumb interphalangeal joint. SOFT TISSUES: Right thumb soft tissue swelling. No foreign body. OTHER: No other significant finding. IMPRESSION: Acute nondisplaced fracture along the palmar and radial aspect base right thumb distal phalanx at the interphalangeal joint. COMMENT: SITE OF TRAUMA/COMPLAINT MARKED/STAMP COMPLETED: Yes TECHNICAL DOCUMENTATION: JOB ID: [id number] [employer]- All Rights Reserved Reading location - IP/workstation name: [email or web address]- Procedures - Immobilization Right Thumb Pre-Proc Neuro Vasc Exam: Normal Immobilizer type: Finger splint (Static) Performed by: PCT Post-Proc Neuro Vasc Exam: Unchanged from pre-exam Alignment checked and good: Yes Discharge - Discharge Clinical Impression: Pain of right thumb, fracture right thumb Condition: Stable Disposition: HOME, SELF-CARE Instructions: Fractured Finger ([facility]), Ibuprofen (General) ([facility]), Fractured Thumb ([facility]) Additional Instructions: *You have been evaluated for right thumb fracture, nondisplaced *Maintain the splint *Rest/Ice/Elevate *Follow up with your primary care provider within one week for recheck *Follow up with orthopedics for continued pain *Take medication as prescribed *Return to ED for worsening condition, changes, needs, redness, increased pain, concerns Monitor your blood pressure. Your blood pressure was elevated today. This may be because you were anxious, in pain or because you need medication. It is important to follow up with your primary care provider for full evaluation. Prescriptions: Ibuprofen [Motrin 800 mg Tablet] 800 mg PO TID #20 tablet Forms: Elevated Blood Pressure, Return to Work Referrals: ODETTE PALM DO [Primary Care Provider] - Follow up in 3-5 days [facility] [Provider Group] - Follow up as needed
--- NOTE | 2018-10-02 15:28 | RADIOLOGY REPORT (SQ) ---
EXAM DESCRIPTION: FINGER RIGHT COMPLETED DATE/TIME: 10/02/2018 3:09 pm REASON FOR STUDY: pain, hyperextended thumb COMPARISON: None. NUMBER OF VIEWS: Three views. TECHNIQUE: AP, lateral, and oblique images acquired of the right thumb. LIMITATIONS: None. FINDINGS: MINERALIZATION: Normal. BONES: Acute nondisplaced fracture along the palmar and radial aspect of the right thumb distal phala nx at the interphalangeal joint. Fractures marked with arrows. Incidental finding of benign sesamoid bones of the 1st MCP joint the thumb interphalangeal joint. SOFT TISSUES: Right thumb soft tissue swelling. No foreign body. OTHER: No other significant finding. IMPRESSION: Acute nondisplaced fracture along the palmar and radial aspect base right thumb distal p halanx at the interphalangeal joint. COMMENT: SITE OF TRAUMA/COMPLAINT MARKED/STAMP COMPLETED: Yes TECHNICAL DOCUMENTATION: JOB ID: [id number] [employer]- All Rights Reserved Reading location - IP/workstation name: [email or web address]
== END 2018-10-02 16:03 | disposition home or self-care (01) ==
LOC: ER 14:36
DX: S62.524A Nondisplaced fracture of distal phalanx of right thumb, initial encounter for closed fracture (principal); W10.8XXA Fall (on) (from) other stairs and steps, initial encounter; F17.210 Nicotine dependence, cigarettes, uncomplicated
CPT/HCPCS: 99283

== ENCOUNTER 2018-12-26 22:14 | Emergency (ER) | payer BC ==
--- NOTE | 2018-12-26 22:58 | RADIOLOGY REPORT (SQ) ---
EXAM DESCRIPTION: XR FOREARM 2 VIEWS COMPLETED DATE/TME: 12/26/2018 22:18 CLINICAL HISTORY: 38 years, Female, injury/pain COMPARISON: None. NUMBER OF VIEWS: Two TECHNIQUE: Frontal and lateral radiographs of the forearm were obtained LIMITATIONS: None. FINDINGS: Visualized is a comminuted fracture involving the distal ulnar diaphysis with slight radial and volar displacement of the distal fracture fragment. No additional osseous anomalies. IMPRESSION: Mildly displaced comminuted fracture involving the distal ulnar diaphysis. copyright 2010 [employer]- All Rights Reserved
[2018-12-26] MEDS ORDERED: HYDROCODONE/ACETAMINOPHEN 5-325 MG TABLET PO ONE (23:11)
[2018-12-26] MEDS ORDERED: ONDANSETRON 4 MG TAB.RAPDIS PO ONE (23:11)
[2018-12-27] MEDS ORDERED: MORPHINE SULFATE 10 MG/ML INJ IM ONE (00:01)
[2018-12-27] MEDS ORDERED: HYDROCODONE/ACETAMINOPHEN 5-325 MG (6 TAB/ER DISP) PO PRN (00:56)
[2018-12-27] MEDS ORDERED: ONDANSETRON ODT 4 MG TAB (6 TAB/ER DISP) PO PRN (00:56)
[2018-12-27 01:18] VITALS: BP 136/97
--- NOTE | 2018-12-27 08:06 | ER Document Report ---
Entered by CHRIST DUNNE SCRIBE 12/26/18 [id number] Acting as scribe for:TATY MON DO ED Extremity Problem, Upper - General Chief Complaint: Arm Pain Stated Complaint: DIZZINESS Time Seen by Provider: 12/26/18 22:52 Primary Care Provider: ODETTE PALM DO [Primary Care Provider] - Follow up as needed MIKHAIL SMYTH MD [ACTIVE STAFF] - Follow up as needed Notes: 38-year-old female who presents to the emergency department today with complaints of right upper extremity pain. Patient states she swung her arm out and hit a door frame just prior to arrival which caused her pain. Patient states that after hitting her arm of the door frame she became lightheaded, dizzy, and had some associated nausea. She initially complained that her entire right arm was numb but now denies any numbness or tingling in her hand. TRAVEL OUTSIDE OF THE [place] IN LAST 30 DAYS: No - Related Data Allergies/Adverse Reactions: No Known Allergies Allergy (Verified 10/02/18 14:37) Past Medical History - General Information source: Patient - Social History Smoking Status: Current Every Day Smoker Cigarette use (# per day): Yes Frequency of alcohol use: None Drug Abuse: None Lives with: Family Family History: None, Reviewed & Not Pertinent Patient has suicidal ideation: No Patient has homicidal ideation: No - Past Medical History Cardiac Medical History: Reports: Hx Hypercholesterolemia Renal/ Medical History: Reports: Hx Kidney Stones Psychiatric Medical History: Reports: Hx Anxiety, Hx Depression - and anxiety, Hx Post Traumatic Stress Disorder Past Surgical History: Reports: Hx Dilation and Curettage, Hx Gynecologic Surgery - D&C, Hx Hysterectomy, Hx Kidney (Renal Surgery) - lithotripsy - Immunizations Immunizations up to date: Yes Hx Diphtheria, Pertussis, Tetanus Vaccination: Yes - Not sure Review of Systems - Review of Systems Constitutional: No symptoms reported EENT: No symptoms reported Cardiovascular: See HPI, Dizziness, Lightheaded Respiratory: No symptoms reported Gastrointestinal: See HPI, Nausea Genitourinary: No symptoms reported Female Genitourinary: No symptoms reported Musculoskeletal: See HPI, Joint pain - right arm pain Skin: No symptoms reported Hematologic/Lymphatic: No symptoms reported Neurological/Psychological: See HPI. denies: Numbness, Tingling -: Yes All other systems reviewed and negative Physical Exam - Vital signs Vitals: Temp Pulse Resp BP Pulse Ox 98.6 F 64 18 141/88 H 98 12/26/18 22:29 12/26/18 22:29 12/26/18 22:29 12/26/18 22:29 12/26/18 22:29 - Notes Notes: PHYSICAL EXAM GENERAL: Alert, interacts well. Appears uncomfortable. HEAD: Normocephalic, atraumatic. EYES: Pupils equal, round, and reactive to light. Extraocular movements intact. ENT: Oral mucosa moist, tongue midline. NECK: Full range of motion. Supple. Trachea midline. LUNGS: No respiratory distress. HEART: Regular rate and rhythm. Brisk capillary refill distally. EXTREMITIES: Tenderness with palpation over the right ulna, mid-shaft. No obvious deformity. No external sign of trauma. 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 No edema, radial and dorsalis pedis pulses 2/4 bilaterally. NEUROLOGICAL: Alert and oriented x3. Normal speech. PSYCH: Normal affect, normal mood. SKIN: Warm, dry, normal turgor. No rashes or lesions noted. Course - Vital Signs Vital signs: Temp Pulse Resp BP Pulse Ox 98.1 F 66 16 136/97 H 97 12/27/18 01:12 12/27/18 01:12 12/27/18 01:12 12/27/18 01:12 12/27/18 01:12 Procedures - Immobilization right forearm Pre-Proc Neuro Vasc Exam: Normal Immobilizer type: Sugar tong Performed by: RN, PCT Post-Proc Neuro Vasc Exam: Normal, Unchanged from pre-exam Alignment checked and good: Yes Discharge - Discharge Clinical Impression: Fracture of right ulna, shaft Qualifiers: Encounter type: initial encounter Fracture type: closed Fracture morphology: comminuted Fracture alignment: nondisplaced Qualified Code(s): S52.254A - Nondisplaced comminuted fracture of shaft of ulna, right arm, initial encounter for closed fracture Condition: Stable Disposition: HOME, SELF-CARE Additional Instructions: You broke your ulna, it is 1 of the bones in your forearm. It is relatively well aligned. It should not need surgery. We have placed you in a splint. If you develop numbness, tingling, cold fingers or weakness please loosen the Luis wrap on the splint. If the symptoms do not improve within 15 minutes please return to the emergency department. Please follow-up with orthopedic surgery within the next week, you will need a cast. Please call their office first thing Saturday to arrange a follow- up appointment. Please take ibuprofen 800 mg every 8 hours for pain over the next 48 hours, after that you may take it only as needed. You may also use the [place] every 4-6 hours as needed for pain. You may take the Zofran along with it to prevent nausea. Prescriptions: Hydrocodone/Acetaminophen [[place] 5-325 mg Tablet] 1 tab PO Q4HP PRN #6 tablet PRN Reason: Ondansetron [Zofran Odt 4 mg Tablet] 1 tab PO Q4HP PRN #10 tab.rapdis PRN Reason: Forms: Return to Work Referrals: ODETTE PALM DO [Primary Care Provider] - Follow up as needed MIKHAIL SMYTH MD [ACTIVE STAFF] - Follow up as needed I personally performed the services described in the documentation, reviewed and edited the documentation which was dictated to the scribe in my presence, and it accurately records my words and actions.
== END 2018-12-27 01:24 | disposition home or self-care (01) ==
LOC: ER 22:14
DX: S52.254A Nondisplaced comminuted fracture of shaft of ulna, right arm, initial encounter for closed fracture (principal); R42 Dizziness and giddiness; W22.09XA Striking against other stationary object, initial encounter; F17.210 Nicotine dependence, cigarettes, uncomplicated; E78.00 Pure hypercholesterolemia, unspecified; Z87.442 Personal history of urinary calculi; Z90.710 Acquired absence of both cervix and uterus
CPT/HCPCS: 99283; 96372; 73090; 29105; S0119; J2270

== ENCOUNTER 2019-01-25 03:47 | Emergency (ER) | payer BC ==
[2019-01-25] MEDS ORDERED: CETIRIZINE 10 MG TABLET PO ONE (04:22)
[2019-01-25] MEDS ORDERED: DEXAMETHASONE SOD PHOS INJ 10 MG/1 ML VIAL IM ONE (04:22)
--- NOTE | 2019-01-25 04:27 | ER Document Report ---
HPI - HPI Time Seen by Provider: 01/25/19 04:13 Pain Level: 5 Context: Patient is a 39-year-old female that comes to the emergency department for chief complaint of swelling to the right hand, she currently has a cast on the right hand/forearm because of a ulnar fracture, she states that she saw what appeared to be a bedbug on her hand and it bit her over the first and second knuckles, she also states she was bitten on the forehead. She states that she has been co ncerned because the area has started to have some slight soft tissue swelling, a lot of itching, and she has had multiple cases in the past where she had large amount of localized swelling and even secondary cellulitis developing from insect bites. She states she was bitten over 24 hours ago. She is not a diabetic. She denies any other complaints. - REPRODUCTIVE LMP: Hyst Reproductive: DENIES: : Past Medical History - General Information source: Patient - Social History Smoking Status: Never Smoker Drug Abuse: None Lives with: Family Family History: None, Reviewed & Not Pertinent - Past Medical History Cardiac Medical History: Reports: Hx Hypercholesterolemia Denies: Hx Coronary Artery Disease, Hx Heart Attack, Hx Hypertension Pulmonary Medical History: Denies: Hx Asthma, Hx Bronchitis, Hx COPD, Hx Pneumonia Neurological Medical History: Denies: Hx Cerebrovascular Accident, Hx Seizures Renal/ Medical History: Reports: Hx Kidney Stones. Denies: Hx Peritoneal Dialysis GI Medical History: Denies: Hx Hepatitis, Hx Hiatal Hernia, Hx Ulcer Musculoskeletal Medical History: Denies Hx Arthritis Psychiatric Medical History: Reports: Hx Anxiety, Hx Depression - and anxiety, Hx Post Traumatic Stress Disorder Infectious Medical History: Denies: Hx Hepatitis Past Surgical History: Reports: Hx Dilation and Curettage, Hx Gynecologic Surgery - D&C, Hx Hysterectomy, Hx Kidney (Renal Surgery) - lithotripsy. Denies: Hx Mastectomy, Hx Open Heart Surgery, Hx Pacemaker - Immunizations Immunizations up to date: Yes Hx Diphtheria, Pertussis, Tetanus Vaccination: Yes - Not sure Vertical Provider Document - CONSTITUTIONAL General Appearance: WD/WN, No Apparent Distress - INFECTION CONTROL TRAVEL OUTSIDE OF THE [place] IN LAST 30 DAYS: No - HEENT HEENT: Atraumatic, Normal ENT Exam, Normocephalic - RESPIRATORY Respiratory: Breath Sounds Normal, No Respiratory Distress - CARDIOVASCULAR Cardiovascular: Regular Rate, Regular Rhythm - GI/ABDOMEN Gastrointestinal: Abdomen Soft, Abdomen Non-Tender - BACK Back: Normal Inspection - MUSCULOSKELETAL/EXTREMETIES Musculoskeletal/Extremeties: MAEW, FROM, Tender - There is a cast over the right upper extremity. Over the knuckle of the index finger there is what appears to be an insect bite with mild surrounding soft tissue swelling and minimal erythe ma. No noted tenderness, no fluctuance or induration, normal range of motion of the fingers, normal capillary refill and sensation. Remaining hand exam is normal. Course - Re-evaluation Re-evalutation: I am able to put my fingers underneath the edge of the cast, there does not appear to be any significant swelling of the hand from the insect bite to indicate removal of the cast, there is no neurovascular compromise. Does not appear to be cellulitis at this time although there is some mild erythema with minimal soft tissue swelling. Patient specifically tells me she saw the insect. She states she has had this problem several times in the past and always has this kind of reaction. She is requesting a shot of steroids, antihistamine, and prophylaxis for cellulitis because she states she has developed this multiple times in the past. She is not diabetic. She is not running a fever. Patient was provided with these things, instructions for follow-up, and return precautions. Patient states understanding and agreement. - Vital Signs Vital signs: Temp Pulse Resp BP Pulse Ox 97.9 F 83 14 147/82 H 99 01/25/19 03:50 01/25/19 03:50 01/25/19 03:50 01/25/19 03:50 01/25/19 03:50 Discharge - Discharge Clinical Impression: Insect bite Qualifiers: Encounter type: initial encounter Site of insect bite: hand Laterality: right Qualified Code(s): S60.561A - Insect bite (nonvenomous) of right hand, initial encounter Condition: Stable Disposition: HOME, SELF-CARE Additional Instructions: You have been covered for localized soft tissue swelling. You can take the antihistamine hydroxyzine for itching/sleep if needed. You can alternatively take [id number] antihistamine such as cetirizine. You have been provided with Keflex prophylaxis because of your history of cellulitis with this kind of thing. Follow-up with primary care. Return if you worsen including worsening swelling, developing or spreading redness, fever/chills, severe pain, or any other concerning or worsening symptoms. Prescriptions: Cephalexin Monohydrate [Keflex 500 mg Capsule] 500 mg PO QID 5 Days #20 capsule Hydroxyzine HCl [Atarax 25 mg Tablet] 1 - 2 tab PO QID PRN #20 tablet PRN Reason: Referrals: ODETTE PALM, [Primary Care Provider] - Follow up as needed
[2019-01-25 05:26] VITALS: BP 116/77
== END 2019-01-25 05:25 | disposition home or self-care (01) ==
LOC: ER 03:47
DX: S60.561A Insect bite (nonvenomous) of right hand, initial encounter (principal); W57.XXXA Bitten or stung by nonvenomous insect and other nonvenomous arthropods, initial encounter
CPT/HCPCS: 99281; J1100

== ENCOUNTER 2019-02-01 00:43 | Emergency (ER) | payer BC ==
[2019-02-01] MEDS ORDERED: ONDANSETRON HCL INJ/PF 4 MG/2 ML SDV IV ONE (01:47)
[2019-02-01] MEDS ORDERED: NORMAL SALINE 1000 ML 1,000 ML IV ONE (01:47)
[2019-02-01 02:15] LABS: ABSOLUTE BASOPHILS # (AUTO) 0.1 10^3/uL (0.0-0.2); ABSOLUTE EOSINOPHILS # (AUTO) 0.2 10^3/uL (0.0-0.6); ABSOLUTE LYMPHOCYTES (AUTO) 2.5 10^3/uL (0.5-4.7); ABSOLUTE MONOCYTES (AUTO) 0.9 10^3/uL (0.1-1.4); ABSOLUTE NEUT (AUTO) 5.8 10^3/uL (1.7-8.2); BASOPHILS % (AUTO) 0.7 % (0-2); EOSINOPHILS % (AUTO) 1.9 % (0-6); HEMATOCRIT 42.6 % (36.0-47.0); HEMOGLOBIN 14.7 g/dL (12.0-15.5); LYMPHOCYTES % (AUTO) 26.3 % (13-45); MEAN CORPUSCULAR HEMOGLOBIN 32.8 pg (27.0-33.4); MEAN CORPUSCULAR HGB CONC 34.6 g/dL (32.0-36.0); MEAN CORPUSCULAR VOLUME 95 fl (80-97); MONOCYTES % (AUTO) 9.4 % (3-13); PLATELET COUNT 309 10^3/uL (150-450); RED BLOOD COUNT 4.49 10^6/uL (3.72-5.28); RED CELL DISTRIBUTION WIDTH 12.8 % (11.5-14.0); SEGMENTED NEUTROPHILS % (AUTO) 61.7 % (42-78); TOTAL CELLS COUNTED % (AUTO) 100 %; WHITE BLOOD COUNT 9.4 10^3/uL (4.0-10.5)
--- NOTE | 2019-02-01 02:15 | ER Document Report ---
ED General - General Chief Complaint: Near Syncope Stated Complaint: NAUSEA/SWEATING Time Seen by Provider: 02/01/19 01:30 Primary Care Provider: ODETTE PALM DO [Primary Care Provider] - Follow up as needed Mode of Arrival: Ambulatory Information source: Patient Notes: Patient is a 39-year-old female presenting to the emergency department with chief complaint of nausea, dizziness and episodes of diaphoresis that started approximately 2 hours prior to arrival. Patient reports she has a similar episode approximately 2 weeks ago, she was seen at an urgent care had labs drawn and no cause was found. Patient denies any pain. She states that she was at rest when her symptoms came on suddenly. She denies any shortness of breath or chest pain. She reports past medical history of anxiety, states she has not had to take her anxiety medications for several days. TRAVEL OUTSIDE OF THE [place] IN LAST 30 DAYS: No - Related Data Allergies/Adverse Reactions: No Known Allergies Allergy (Verified 10/02/18 14:37) Past Medical History - General Information source: Patient - Social History Smoking Status: Current Every Day Smoker Frequency of alcohol use: None Drug Abuse: None Family History: None, Reviewed & Not Pertinent - Past Medical History Cardiac Medical History: Reports: Hx Hypercholesterolemia Denies: Hx Coronary Artery Disease, Hx Heart Attack, Hx Hypertension Pulmonary Medical History: Denies: Hx Asthma, Hx Bronchitis, Hx COPD, Hx Pneumonia Neurological Medical History: Denies: Hx Cerebrovascular Accident, Hx Seizures Renal/ Medical History: Reports: Hx Kidney Stones. Denies: Hx Peritoneal Dialysis GI Medical History: Denies: Hx Hepatitis, Hx Hiatal Hernia, Hx Ulcer Musculoskeletal Medical History: Denies Hx Arthritis Psychiatric Medical History: Reports: Hx Anxiety, Hx Depression - and anxiety, Hx Post Traumatic Stress Disorder Infectious Medical History: Denies: Hx Hepatitis Past Surgical History: Reports: Hx Dilation and Curettage, Hx Gynecologic Surgery - D&C, Hx Hysterectomy, Hx Kidney (Renal Surgery) - lithotripsy. Denies: Hx Mastectomy, Hx Open Heart Surgery, Hx Pacemaker - Immunizations Immunizations up to date: Yes Hx Diphtheria, Pertussis, Tetanus Vaccination: Yes - Not sure Review of Systems - Review of Systems Constitutional: Malaise. denies: Fever EENT: No symptoms reported Cardiovascular: Dizziness, Lightheaded. denies: Chest pain, Palpitations, Orthopnea, Dyspnea Respiratory: No symptoms reported Gastrointestinal: Nausea Genitourinary: No symptoms reported Female Genitourinary: No symptoms reported Musculoskeletal: No symptoms reported Skin: No symptoms reported Hematologic/Lymphatic: No symptoms reported Neurological/Psychological: No symptoms reported Physical Exam - Vital signs Vitals: Temp Pulse Resp BP Pulse Ox 98.3 F 74 16 153/96 H 100 02/01/19 01:11 02/01/19 01:11 02/01/19 01:11 02/01/19 01:11 02/01/19 01:11 - Notes Notes: PHYSICAL EXAMINATION: GENERAL: Well-appearing, well-nourished and in no acute distress. HEAD: Atraumatic, normocephalic. EYES: Pupils equal round and reactive to light, extraocular movements intact, conjunctiva are normal. ENT: Nares patent, oropharynx clear without exudates. Moist mucous membranes. NECK: Normal range of motion, supple without lymphadenopathy LUNGS: Breath sounds clear to auscultation bilaterally and equal. No wheezes rales or rhonchi. HEART: Regular rate and rhythm without murmurs ABDOMEN: Soft, nontender, nondistended abdomen. No guarding, no rebound. No masses appreciated. Female : No CVAT. Musculoskeletal: Normal range of motion, no pitting or edema. No cyanosis. NEUROLOGICAL: Cranial nerves grossly intact. Normal speech, normal gait. Normal sensory, motor exams PSYCH: Normal mood, normal affect. SKIN: Warm, Dry, normal turgor, no rashes or lesions noted. Course - Re-evaluation Re-evalutation: Patient is nontoxic in appearance, vital signs are within normal limits and patient is alert, oriented and answering all questions. Patient reports reports she is feeling improved after administration of antiemetics. Labs as recorded are unremarkable. Troponin is negative. Chest x-ray shows no acute infiltrates, cardiomegaly or pneumothorax. EKG was reviewed by me and shows a sinus rhythm, rate of 65, QTc 400, normal axis, no ST segment elevations or depressions. Patient has not had any chest pain or shortness of breath but due to patient's multiple vague symptoms I will hold her over for a delta troponin. She does have a heart score of 2. Repeat troponin was negative. Patient's vital signs have remained stable during her visit in the emergency patient has not had any episodes of vomiting or dizziness. Patient does have a primary care provider, she feels comfortable following up with them. Patient will be prescribed antiemetics. ED return precautions were discussed and patient verbalizes understanding and agreement with plan. - Vital Signs Vital signs: Temp Pulse Resp BP Pulse Ox 98.3 F 74 11 L 109/61 100 02/01/19 01:11 02/01/19 01:11 02/01/19 06:01 02/01/19 07:24 02/01/19 07:24 - Laboratory Result Diagrams: 02/01/19 02:00 02/01/19 02:00 Laboratory results interpreted by me: 02/01/19 02:00 Chloride 111 H Glucose 121 H Discharge - Discharge Clinical Impression: Nausea, Dizziness Condition: Stable Disposition: HOME, SELF-CARE Additional Instructions: Your work-up today was reassuring. All of your lab results and EKG were normal today. Please use the antinausea medication as prescribed. Return to the emergency department with any new or worsening symptoms. Follow-up with your primary care provider in the next 3 to 5 days for follow-up. Prescriptions: Promethazine HCl [Phenergan 25 mg Tablet] 1 - 2 tab PO Q6H PRN #15 tablet PRN Reason: Forms: Return to Work Referrals: ODETTE PALM, [Primary Care Provider] - Follow up as needed
[2019-02-01 02:33] LABS: ALANINE AMINOTRANSFERASE 26 U/L (9-52); ALBUMIN 4.1 g/dL (3.5-5.0); ALKALINE PHOSPHATASE 83 U/L (38-126); ANION GAP 10 (5-19); ASPARTATE AMINO TRANSFERASE 23 U/L (14-36); BILIRUBIN,DIRECT 0.2 mg/dL (0.0-0.4); BILIRUBIN,TOTAL 0.4 mg/dL (0.2-1.3); BLOOD UREA NITROGEN 15 mg/dL (7-20); CALCIUM 10.2 mg/dL (8.4-10.2); CARBON DIOXIDE 22 mmol/L (22-30); CHLORIDE 111 mmol/L (98-107); GLUCOSE 121 mg/dL (75-110); POTASSIUM 3.7 mmol/L (3.6-5.0); SODIUM 142.7 mmol/L (137-145); TOTAL PROTEIN 7.4 g/dL (6.3-8.2)
[2019-02-01 03:33] LABS: APPEARANCE,URINE SLIGHTLY-CLOUDY; BILIRUBIN,URINE NEGATIVE (NEGATIVE); COLOR,URINE YELLOW; GLUCOSE, URINE NEGATIVE (NEGATIVE); KETONES,URINE NEGATIVE (NEGATIVE); LEUKOCYTE ESTERASE,URINE NEGATIVE (NEGATIVE); NITRITE,URINE NEGATIVE (NEGATIVE); PROTEIN,URINE NEGATIVE (NEGATIVE); URINE SPECIFIC GRAVITY 1.009; UROBILINOGEN,URINE NEGATIVE mg/dL (<2.0)
[2019-02-01 07:45] VITALS: BP 109/61
--- NOTE | 2019-02-01 10:14 | EKG REPORT ---
SEVERITY:- NORMAL ECG - SINUS RHYTHM : Confirmed by: Yan Jacinto MD 01-Feb-2019 10:13:50
== END 2019-02-01 07:46 | disposition home or self-care (01) ==
LOC: ER 00:43
DX: R42 Dizziness and giddiness (principal); R11.0 Nausea; R61 Generalized hyperhidrosis; F17.200 Nicotine dependence, unspecified, uncomplicated; R53.81 Other malaise
CPT/HCPCS: 93005; 99284; 96361; 96374; 36415; 85025; 80053; 81001; 84484; 93010; J2405; J7030

== ENCOUNTER 2019-02-04 21:49 | Emergency (ER) | payer BC ==
--- NOTE | 2019-02-04 22:52 | ER Document Report ---
ED Medical Screen (RME) - General Chief Complaint: Dizziness Stated Complaint: DIZZINESS AND HEADACHE Time Seen by Provider: 02/04/19 22:48 Primary Care Provider: ODETTE PALM DO [Primary Care Provider] - Follow up as needed Notes: 39-year-old female coming in today with severe dizziness lightheadedness and feels like she faint. Here 3 days ago for same. Worked up. Told to follow with primary care doctor. Back because dizziness worse. I have treated and performed a rapid initial assessment of this patient. A comprehensive ED assessment and evaluation of the patient, analysis of test results and completion of medical decision making process will be conducted by additional ED providers. PHYSICAL EXAMINATION: GENERAL: Nontoxic, no acute distress LUNGS: No respiratory distress HEART: Well perfused ABDOMEN: Distended Extremities: No cyanosis, clubbing, or edema b/l. NEUROLOGICAL: Normal speech, normal gait. PSYCH: Normal mood, normal affect. TRAVEL OUTSIDE OF THE [place] IN LAST 30 DAYS: No - Related Data Allergies/Adverse Reactions: No Known Allergies Allergy (Verified 02/04/19 21:50) Past Medical History - Past Medical History Cardiac Medical History: Reports: Hx Hypercholesterolemia Denies: Hx Coronary Artery Disease, Hx Heart Attack, Hx Hypertension Pulmonary Medical History: Denies: Hx Asthma, Hx Bronchitis, Hx COPD, Hx Pneumonia Neurological Medical History: Denies: Hx Cerebrovascular Accident, Hx Seizures Renal/ Medical History: Reports: Hx Kidney Stones. Denies: Hx Peritoneal Dialysis GI Medical History: Denies: Hx Hepatitis, Hx Hiatal Hernia, Hx Ulcer Musculoskeltal Medical History: Denies Hx Arthritis Psychiatric Medical History: Reports: Hx Anxiety, Hx Depression - and anxiety, Hx Post Traumatic Stress Disorder Infectious Medical History: Denies: Hx Hepatitis Past Surgical History: Reports: Hx Dilation and Curettage, Hx Gynecologic Surgery - D&C, Hx Hysterectomy, Hx Kidney (Renal Surgery) - lithotripsy. Denies: Hx Mastectomy, Hx Open Heart Surgery, Hx Pacemaker - Immunizations Immunizations up to date: Yes Hx Diphtheria, Pertussis, Tetanus Vaccination: Yes - Not sure History of Influenza Vaccine for 05/2017 - 10/2017 Season: No Physical Exam - Vital signs Vitals: Temp Pulse Resp BP Pulse Ox 97.9 F 86 16 131/99 H 100 02/04/19 21:54 02/04/19 21:54 02/04/19 21:54 02/04/19 21:54 02/04/19 21:54 Course - Vital Signs Vital signs: Temp Pulse Resp BP Pulse Ox 97.9 F 86 16 131/99 H 100 02/04/19 21:54 02/04/19 21:54 02/04/19 21:54 02/04/19 21:54 02/04/19 21:54 Doctor's Discharge - Discharge Referrals: ODETTE PALM DO [Primary Care Provider] - Follow up as needed
--- NOTE | 2019-02-04 23:19 | RADIOLOGY REPORT (SQ) ---
EXAM DESCRIPTION: CT HEAD WITHOUT IV CONTRAST COMPLETED DATE/TME: 02/04/2019 22:50 CLINICAL HISTORY: 39 years Female, extreme dizziness COMPARISON: 08/12/17 TECHNIQUE: No contrast. Coronal and sagittal reformat. This exam was performed according to our departmental dose-optimization program, which includes automated exposure control, adjustment of the mA and/or kV according to patient size and/or use of iterative reconstruction technique. FINDINGS: No hemorrhage or infarct. No mass, mass effect, or midline shift. 2.5 cm left maxillary and 2.1 cm right maxillary mucous retention cyst. Brain and extra-axial structures appear otherwise intact. IMPRESSION: No acute findings.
[2019-02-04 23:28] LABS: ABSOLUTE BASOPHILS # (AUTO) 0.1 10^3/uL (0.0-0.2); ABSOLUTE EOSINOPHILS # (AUTO) 0.1 10^3/uL (0.0-0.6); ABSOLUTE LYMPHOCYTES (AUTO) 3.2 10^3/uL (0.5-4.7); ABSOLUTE MONOCYTES (AUTO) 0.6 10^3/uL (0.1-1.4); BASOPHILS % (AUTO) 1.1 % (0-2); EOSINOPHILS % (AUTO) 0.8 % (0-6); HEMATOCRIT 45.2 % (36.0-47.0); HEMOGLOBIN 15.6 g/dL (12.0-15.5); LYMPHOCYTES % (AUTO) 28.8 % (13-45); MEAN CORPUSCULAR HEMOGLOBIN 32.6 pg (27.0-33.4); MEAN CORPUSCULAR HGB CONC 34.6 g/dL (32.0-36.0); MEAN CORPUSCULAR VOLUME 94 fl (80-97); MONOCYTES % (AUTO) 5.7 % (3-13); PLATELET COUNT 336 10^3/uL (150-450); RED CELL DISTRIBUTION WIDTH 12.4 % (11.5-14.0); SEGMENTED NEUTROPHILS % (AUTO) 63.6 % (42-78); TOTAL CELLS COUNTED % (AUTO) 100 %
[2019-02-04 23:51] LABS: ALANINE AMINOTRANSFERASE 27 U/L (9-52); ALBUMIN 4.7 g/dL (3.5-5.0); ALKALINE PHOSPHATASE 97 U/L (38-126); ANION GAP 11 (5-19); ASPARTATE AMINO TRANSFERASE 18 U/L (14-36); BILIRUBIN,DIRECT 0.2 mg/dL (0.0-0.4); BILIRUBIN,TOTAL 0.9 mg/dL (0.2-1.3); BLOOD UREA NITROGEN 8 mg/dL (7-20); CALCIUM 10.4 mg/dL (8.4-10.2); CARBON DIOXIDE 23 mmol/L (22-30); CHLORIDE 108 mmol/L (98-107); GLUCOSE 108 mg/dL (75-110); POTASSIUM 3.9 mmol/L (3.6-5.0); SODIUM 141.5 mmol/L (137-145); TOTAL PROTEIN 8.3 g/dL (6.3-8.2)
[2019-02-05] MEDS ORDERED: ONDANSETRON 4 MG TAB.RAPDIS PO ONE (00:05)
[2019-02-05 04:28] VITALS: BP 110/84
--- NOTE | 2019-02-05 05:31 | ER Document Report ---
ED General - General Chief Complaint: Dizziness Stated Complaint: DIZZINESS AND HEADACHE Time Seen by Provider: 02/04/19 22:48 Primary Care Provider: ODETTE PALM DO [Primary Care Provider] - Follow up as needed Notes: Pleasant 39-year-old female presents emergency department with dizziness, lightheadedness, feeling faint. She was seen here 3 days ago for the same issue. She had a work-up that was negative. She was told to follow-up with her primary care doctor. She represents today because her dizziness is gotten worse. She denies any other changes to include fever, neck stiffness, headache, vision changes, acute shortness of breath or chest pain, nausea/vomiting/diarrhea/constipation. No other complaints TRAVEL OUTSIDE OF THE [place] IN LAST 30 DAYS: No - Related Data Allergies/Adverse Reactions: No Known Allergies Allergy (Verified 02/04/19 21:50) Past Medical History - Social History Smoking Status: Unknown if Ever Smoked Family History: None, Reviewed & Not Pertinent Patient has suicidal ideation: No Patient has homicidal ideation: No - Past Medical History Cardiac Medical History: Reports: Hx Hypercholesterolemia Denies: Hx Coronary Artery Disease, Hx Heart Attack, Hx Hypertension Pulmonary Medical History: Denies: Hx Asthma, Hx Bronchitis, Hx COPD, Hx Pneumonia Neurological Medical History: Denies: Hx Cerebrovascular Accident, Hx Seizures Renal/ Medical History: Reports: Hx Kidney Stones. Denies: Hx Peritoneal Dialysis GI Medical History: Denies: Hx Hepatitis, Hx Hiatal Hernia, Hx Ulcer Musculoskeletal Medical History: Denies Hx Arthritis Psychiatric Medical History: Reports: Hx Anxiety, Hx Depression - and anxiety, Hx Post Traumatic Stress Disorder Infectious Medical History: Denies: Hx Hepatitis Past Surgical History: Reports: Hx Dilation and Curettage, Hx Gynecologic Surgery - D&C, Hx Hysterectomy, Hx Kidney (Renal Surgery) - lithotripsy. Denies: Hx Mastectomy, Hx Open Heart Surgery, Hx Pacemaker - Immunizations Immunizations up to date: Yes Hx Diphtheria, Pertussis, Tetanus Vaccination: Yes - Not sure Review of Systems - Review of Systems Constitutional: See HPI EENT: No symptoms reported Cardiovascular: See HPI Respiratory: See HPI Gastrointestinal: See HPI Genitourinary: See HPI Female Genitourinary: No symptoms reported Musculoskeletal: No symptoms reported Skin: No symptoms reported Hematologic/Lymphatic: No symptoms reported Neurological/Psychological: See HPI Physical Exam - Vital signs Vitals: Temp Pulse Resp BP Pulse Ox 97.9 F 86 16 131/99 H 100 02/04/19 21:54 02/04/19 21:54 02/04/19 21:54 02/04/19 21:54 02/04/19 21:54 - Notes Notes: PHYSICAL EXAMINATION: Reviewed vital signs and charting by RN GENERAL: Alert, interacts well. No acute distress. HEAD: Normocephalic, atraumatic. EYES: Pupils equal and round. Extraocular movements intact. ENT: Oral mucosa moist, tongue midline. NECK: Full range of motion. Trachea midline. LUNGS: Clear to auscultation bilaterally, no wheezes, rales, or rhonchi. No respiratory distress. HEART: Regular rate and rhythm. No murmur ABDOMEN: soft, non-tender. No distention. Bowel sounds present EXTREMITIES: Moves all 4 extremities spontaneously. No edema, No cyanosis. PSYCH: Normal affect, normal mood. SKIN: Warm, dry, normal turgor. No rashes or lesions noted. Course - Re-evaluation Re-evalutation: 02/05/19 08:00 Overall well-appearing. CT head completed which did not show any acute pathology or intracranial bleed. No focal neuro deficits. Work-up negative. Unclear why patient is having the symptoms but could be related to anxiety. She does take Xanax for anxiety. She is stable for discharge at this time. - Vital Signs Vital signs: Temp Pulse Resp BP Pulse Ox 98.1 F 67 18 110/84 97 02/05/19 04:19 02/05/19 04:28 02/05/19 04:19 02/05/19 04:28 02/05/19 04:19 - Laboratory Result Diagrams: 02/04/19 23:05 02/04/19 23:05 Laboratory results interpreted by me: 02/04/19 02/04/19 23:05 23:05 WBC 11.0 H Hgb 15.6 H Chloride 108 H Calcium 10.4 H Total Protein 8.3 H Discharge - Discharge Clinical Impression: Dizziness, Nausea Condition: Good Disposition: HOME, SELF-CARE Additional Instructions: You were seen today for lightheadedness/dizziness. The exact cause of your symptoms is unclear but your workup here is reassuring without any concerning findings. Please follow closely with your primary care physician in the next 1- 3 days. Return if you pass out, have additional episodes of lightheadedness, develop weakness/numbness, have persistent vomiting, chest pain, shortness of breath or any other symptoms that are concerning to you Referrals: ODETTE PALM, DO [Primary Care Provider] - Follow up as needed
--- NOTE | 2019-02-05 10:20 | EKG REPORT ---
SEVERITY:- NORMAL ECG - SINUS RHYTHM : Confirmed by: Lien More MD 05-Feb-2019 10:20:14
== END 2019-02-05 05:24 | disposition home or self-care (01) ==
LOC: ER 21:49
DX: R42 Dizziness and giddiness (principal); R11.0 Nausea; R51 Headache
CPT/HCPCS: 93005; 99284; 36415; 85025; 81025; 80053; 70450; 93010; S0119

== ENCOUNTER 2019-02-05 16:43 | Emergency (ER) | payer BC ==
--- NOTE | 2019-02-05 17:14 | ER Document Report ---
ED Medical Screen (RME) - General Chief Complaint: Dizziness Stated Complaint: DIZZINESS Time Seen by Provider: 02/05/19 17:07 Primary Care Provider: ODETTE PALM DO [Primary Care Provider] - Follow up as needed Mode of Arrival: Wheelchair Information source: Patient Notes: Patient reports she feels awful like she is about to pass out. She reports this is her third visit to the emergency department for same symptoms. She reports nothing has been found wrong with her. She was discharged earlier today and came back because she still feeling the same way. She did take a Xanax yesterday because she has a history anxiety thought that may be what is going on with her but she said it did not help at all. Denies fever vomiting diarrhea. Denies fall. Denies chest pain. I have greeted and performed a rapid initial assessment of this patient. A comprehensive ED assessment and evaluation of the patient, analysis of test results and completion of the medical decision making process will be conducted by additional ED providers. Dictation of this chart was performed using voice recognition software; therefore, there may be some unintended grammatical errors. TRAVEL OUTSIDE OF THE [place] IN LAST 30 DAYS: No - Related Data Allergies/Adverse Reactions: No Known Allergies Allergy (Verified 02/05/19 16:45) Past Medical History - Past Medical History Cardiac Medical History: Reports: Hx Hypercholesterolemia Denies: Hx Coronary Artery Disease, Hx Heart Attack, Hx Hypertension Pulmonary Medical History: Denies: Hx Asthma, Hx Bronchitis, Hx COPD, Hx Pneumonia Neurological Medical History: Denies: Hx Cerebrovascular Accident, Hx Seizures Renal/ Medical History: Reports: Hx Kidney Stones. Denies: Hx Peritoneal Dialysis GI Medical History: Denies: Hx Hepatitis, Hx Hiatal Hernia, Hx Ulcer Musculoskeltal Medical History: Denies Hx Arthritis Psychiatric Medical History: Reports: Hx Anxiety, Hx Depression - and anxiety, Hx Post Traumatic Stress Disorder Infectious Medical History: Denies: Hx Hepatitis Past Surgical History: Reports: Hx Dilation and Curettage, Hx Gynecologic Surgery - D&C, Hx Hysterectomy, Hx Kidney (Renal Surgery) - lithotripsy. Denies: Hx Mastectomy, Hx Open Heart Surgery, Hx Pacemaker - Immunizations Immunizations up to date: Yes Hx Diphtheria, Pertussis, Tetanus Vaccination: Yes - Not sure History of Influenza Vaccine for 05/2017 - 10/2017 Season: No Physical Exam - Vital signs Vitals: Temp Pulse Resp BP Pulse Ox 98.3 F 89 16 136/115 H 100 02/05/19 16:45 02/05/19 16:45 02/05/19 16:45 02/05/19 16:45 02/05/19 16:45 Course - Vital Signs Vital signs: Temp Pulse Resp BP Pulse Ox 98.3 F 89 16 136/115 H 100 02/05/19 16:45 02/05/19 16:45 02/05/19 16:45 02/05/19 16:45 02/05/19 16:45 Doctor's Discharge - Discharge Referrals: ODETTE PALM, [Primary Care Provider] - Follow up as needed
[2019-02-05] MEDS ORDERED: ONDANSETRON 4 MG TAB.RAPDIS PO ONE (17:41)
[2019-02-05 18:00] LABS: ABSOLUTE BASOPHILS # (AUTO) 0.1 10^3/uL (0.0-0.2); ABSOLUTE LYMPHOCYTES (AUTO) 2.2 10^3/uL (0.5-4.7); ABSOLUTE MONOCYTES (AUTO) 0.5 10^3/uL (0.1-1.4); ABSOLUTE NEUT (AUTO) 6.4 10^3/uL (1.7-8.2); BASOPHILS % (AUTO) 0.9 % (0-2); EOSINOPHILS % (AUTO) 0.3 % (0-6); HEMATOCRIT 45.4 % (36.0-47.0); HEMOGLOBIN 15.7 g/dL (12.0-15.5); LYMPHOCYTES % (AUTO) 23.9 % (13-45); MEAN CORPUSCULAR HEMOGLOBIN 32.7 pg (27.0-33.4); MEAN CORPUSCULAR HGB CONC 34.6 g/dL (32.0-36.0); MEAN CORPUSCULAR VOLUME 95 fl (80-97); PLATELET COUNT 356 10^3/uL (150-450); RED CELL DISTRIBUTION WIDTH 12.6 % (11.5-14.0); SEGMENTED NEUTROPHILS % (AUTO) 69.9 % (42-78); TOTAL CELLS COUNTED % (AUTO) 100 %; WHITE BLOOD COUNT 9.1 10^3/uL (4.0-10.5)
[2019-02-05 18:06] LABS: APPEARANCE,URINE CLEAR; BILIRUBIN,URINE NEGATIVE (NEGATIVE); COLOR,URINE YELLOW; GLUCOSE, URINE NEGATIVE (NEGATIVE); KETONES,URINE TRACE mg/dL (NEGATIVE); LEUKOCYTE ESTERASE,URINE NEGATIVE (NEGATIVE); NITRITE,URINE NEGATIVE (NEGATIVE); PROTEIN,URINE NEGATIVE (NEGATIVE); URINE SPECIFIC GRAVITY 1.008; UROBILINOGEN,URINE NEGATIVE mg/dL (<2.0)
[2019-02-05 18:34] LABS: ALANINE AMINOTRANSFERASE 18 U/L (9-52); ALBUMIN 4.6 g/dL (3.5-5.0); ALKALINE PHOSPHATASE 87 U/L (38-126); ANION GAP 12 (5-19); ASPARTATE AMINO TRANSFERASE 18 U/L (14-36); BILIRUBIN,DIRECT 0.3 mg/dL (0.0-0.4); BILIRUBIN,TOTAL 1.2 mg/dL (0.2-1.3); BLOOD UREA NITROGEN 11 mg/dL (7-20); CALCIUM 10.6 mg/dL (8.4-10.2); CARBON DIOXIDE 19 mmol/L (22-30); CHLORIDE 109 mmol/L (98-107); GLUCOSE 113 mg/dL (75-110); SODIUM 139.8 mmol/L (137-145)
[2019-02-05] MEDS ORDERED: MECLIZINE HCL 25 MG TABLET PO ONE (23:05)
--- NOTE | 2019-02-05 23:06 | ER Document Report ---
ED General - General Chief Complaint: Dizziness Stated Complaint: DIZZINESS Time Seen by Provider: 02/05/19 17:07 Primary Care Provider: ODETTE PALM DO [Primary Care Provider] - 02/09/19 Mode of Arrival: Wheelchair Notes: Patient is a 39-year-old female with a past medical history of generalized anxiety who presents with approximately 2 weeks of lightheadedness, tremulousness and feeling like she is about to pass out. Patient states that her symptoms started gradually 2 weeks ago and have been constant since that time. Nothing seems to improve or worsen her symptoms. Regards him as being severe and pervasive. Denies any history of similar symptoms prior to the past 2 weeks. Has had multiple evaluations in the emergency department for the same without any identified etiology. Has not been able to follow with her primary care doctor although is scheduled to do so on Saturday. Denies focal weakness, loss of sensation, headache or any episodes of syncope. Denies vertiginous symptoms. Denies any difficulty walking. TRAVEL OUTSIDE OF THE [place] IN LAST 30 DAYS: No - Related Data Allergies/Adverse Reactions: No Known Allergies Allergy (Verified 02/05/19 16:45) Past Medical History - General Information source: Patient - Social History Smoking Status: Current Every Day Smoker Chew tobacco use (# tins/day): No Frequency of alcohol use: None Drug Abuse: None Lives with: Spouse/Significant other Family History: Reviewed & Not Pertinent Patient has suicidal ideation: No Patient has homicidal ideation: No - Past Medical History Cardiac Medical History: Reports: Hx Hypercholesterolemia Denies: Hx Coronary Artery Disease, Hx Heart Attack, Hx Hypertension Pulmonary Medical History: Denies: Hx Asthma, Hx Bronchitis, Hx COPD, Hx Pneumonia Neurological Medical History: Denies: Hx Cerebrovascular Accident, Hx Seizures Renal/ Medical History: Reports: Hx Kidney Stones. Denies: Hx Peritoneal Galilea lysis GI Medical History: Denies: Hx Hepatitis, Hx Hiatal Hernia, Hx Ulcer Musculoskeletal Medical History: Denies Hx Arthritis Psychiatric Medical History: Reports: Hx Anxiety, Hx Depression - and anxiety, Hx Post Traumatic Stress Disorder Infectious Medical History: Denies: Hx Hepatitis Past Surgical History: Reports: Hx Dilation and Curettage, Hx Gynecologic Surgery - D&C, Hx Hysterectomy, Hx Kidney (Renal Surgery) - lithotripsy. Denies: Hx Mastectomy, Hx Open Heart Surgery, Hx Pacemaker - Immunizations Immunizations up to date: Yes Hx Diphtheria, Pertussis, Tetanus Vaccination: Yes - Not sure Review of Systems - Review of Systems Notes: Constitutional: Negative for fever. Positive for tremulousness HENT: Negative for sore throat. Eyes: Negative for visual changes. Cardiovascular: Negative for chest pain. Positive for lightheadedness Respiratory: Negative for shortness of breath. Gastrointestinal: Negative for abdominal pain, vomiting or diarrhea. Genitourinary: Negative for dysuria. Musculoskeletal: Negative for back pain. Skin: Negative for rash. Neurological: Negative for headaches, weakness or numbness. 10 point ROS negative except as marked above and in HPI. Physical Exam - Vital signs Vitals: Temp Pulse Resp BP Pulse Ox 98.3 F 89 16 136/115 H 100 02/05/19 16:45 02/05/19 16:45 02/05/19 16:45 02/05/19 16:45 02/05/19 16:45 Interpretation: Normal Notes: PHYSICAL EXAMINATION: GENERAL: Well-appearing, well-nourished and in no acute distress. HEAD: Atraumatic, normocephalic. EYES: Pupils equal round and reactive to light, extraocular movements intact, sclera anicteric, conjunctiva are normal. ENT: nares patent, oropharynx clear without exudates. Moist mucous membranes. NECK: Normal range of motion, supple without lymphadenopathy LUNGS: Breath sounds clear to auscultation bilaterally and equal. No wheezes rales or rhonchi. HEART: Regular rate and rhythm without murmurs ABDOMEN: Soft, nontender, normoactive bowel sounds. No guarding, no rebound. No masses appreciated. EXTREMITIES: Normal range of motion, no pitting or edema. No cyanosis. NEUROLOGICAL: Face symmetric. Tongue protrudes midline. Extraocular motions intact. Pupils are 2 mm and equally reactive. Normal speech, normal gait. 5 out of 5 strength in both the distal and proximal upper and lower extremities bilaterally. Sensation is grossly intact throughout. Finger to nose testing normal. Pronator drift normal. PSYCH: Moderately anxious SKIN: Warm, Dry, normal turgor, no rashes or lesions noted. Course - Re-evaluation Re-evalutation: 02/05/19 23:01 Patient presents with over 2 weeks of persistent, daily feelings of lightheadedness like she is about to pass out. She also notes associated nausea, feeling sweaty and very tired. The very unusual presentation. The patient's work-up is consistently normal, has had 3 total evaluations in the past 4 days including today with unremarkable blood work. EKGs are consistently normal including today. Her neurologic exam is likewise completely unrem arkable. Cerebellar testing is normal. No gait ataxia. Patient does use Xanax although uses this quite sparingly by her report and this does not appear to be either Xanax abuse nor withdrawal. Her symptoms are not consistent with vertigo as she does not truly describe a sensation of the room spinning no positional component, and describes her symptoms as being much more of a feeling like she i s about to pass out. With more unusual those that she describes no positional effect to her lightheadedness. States that the relevant whether or not she is lying down or standing up again this would be quite unusual for presyncope. Her vitals are also within normal limits without hypotension to suggest that she should be feeling lightheaded in the manner in which she is describing. As I discussed with the patient and her significant other I do not feel control diagnosing this is anxiety. I do not know the exact etiology of her presentation today but it does not appear to be from an immediately life- threatening or neurologically devastating condition. She denies any chest pain or shortness of breath. PERC criteria negative. I have advised the patient that she will require ongoing outpatient follow-up which is scheduled for 2 days from today and may require referrals to neurology and cardiology. I have advised the patient that given the diagnostic uncertainty of today's presenta tion she should have a low threshold to return to the emergency department. At this time will discharge with return precautions and follow-up recommendations. Verbal discharge instructions given a the bedside and opportunity for questions given. Medication warnings reviewed. Patient is in agreement with this plan and has verbalized understanding of return precautions and the need for primary care follow-up in the next 24-72 hours. - Vital Signs Vital signs: Temp Pulse Resp BP Pulse Ox 97.8 F 59 L 16 128/83 H 99 02/05/19 23:05 02/05/19 23:05 02/05/19 23:05 02/05/19 23:05 02/05/19 23:05 - Laboratory Result Diagrams: 02/05/19 17:41 02/05/19 17:41 Laboratory results interpreted by me: 02/05/19 02/05/19 02/05/19 17:41 17:41 17:41 Hgb 15.7 H Chloride 109 H Carbon Dioxide 19 L Glucose 113 H Calcium 10.6 H Urine Ketones TRACE H - EKG Interpretation by Me Additional EKG results interpreted by me: 02/06/19 03:56 Sinus rhythm, rate 58, no ST elevations or depressions. QTC is 409 Discharge - Discharge Clinical Impression: Lightheadedness, Nausea Condition: Good Disposition: HOME, SELF-CARE Additional Instructions: You were seen today for lightheadedness/dizziness. The exact cause of your symptoms is unclear but your workup here is reassuring without any concerning findings. Please follow closely with your primary care physician in the next 1- 3 days as we discussed and you may require further referrals to subspecialists i ncluding neurology and cardiology of your symptoms persist. Return if you pass out, have additional episodes of lightheadedness, develop weakness/numbness, have persistent vomiting, chest pain, shortness of breath or any other symptoms that are concerning to you Prescriptions: Meclizine HCl [Antivert 25 mg Tablet] 25 mg PO TID PRN #21 tablet PRN Reason: Referrals: ODETTE PAML DO [Primary Care Provider] - 02/09/19
[2019-02-05 23:07] VITALS: BP 128/83
[2019-02-05] MEDS ORDERED: ONDANSETRON ODT 4 MG TAB (6 TAB/ER DISP) PO PRN (23:14)
--- NOTE | 2019-02-06 19:17 | EKG REPORT ---
SEVERITY:- NORMAL ECG - SINUS RHYTHM : Confirmed by: Lien More MD 06-Feb-2019 19:16:35
== END 2019-02-05 23:28 | disposition home or self-care (01) ==
LOC: ER 16:43
DX: R42 Dizziness and giddiness (principal); R11.0 Nausea; F17.200 Nicotine dependence, unspecified, uncomplicated; F41.1 Generalized anxiety disorder
CPT/HCPCS: 93005; 99284; 36415; 85025; 80053; 81001; 93010; S0119

== ENCOUNTER 2019-02-07 13:43 | Emergency (ER) | payer BC ==
[2019-02-07 13:49] VITALS: BP 124/93
[2019-02-07] MEDS ORDERED: MECLIZINE HCL 12.5 MG TABLET PO ONE (15:04)
[2019-02-07] MEDS ORDERED: NORMAL SALINE 1000 ML 1,000 ML IV ONE (15:06)
--- NOTE | 2019-02-07 15:06 | ER Document Report ---
ED Medical Screen (RME) - General Chief Complaint: Near Syncope Stated Complaint: VOMITING Time Seen by Provider: 02/07/19 14:55 Primary Care Provider: ODETTE PALM DO [Primary Care Provider] - Follow up as needed Notes: Patient is a 39-year-old female presents to the emergency department for nausea, vomiting, dizziness. Patient has been to this facility multiple times for the same. Last visit was 2 days ago. She was given a prescription for meclizine at that visit. Patient states she has been unable to go to the pharmacy to get that medication filled. States she has taken her at home Phenergan around 1:00. Patient then tells triage nurse that she was able to eat tunafish in the waiting room with no further episodes of vomiting. States she is very nauseated and would like to be admitted to the hospital to "figure out what is wrong." Patient is currently eating a piece of candy. GENERAL: Alert, interacts well. No acute distress. EYES: Pupils equal, round, and reactive to light. Extraocular movements intact. I have greeted and performed a rapid initial assessment of this patient. A comprehensive ED assessment and evaluation of the patient, analysis of test results and completion of the medical decision making process will be conducted by additional ED providers. I have specifically instructed the patient or family members with the patient to immediately return to any nursing staff should anything change in the patient's condition or with their chief complaint. This medical record was dictated with voice recognizing software. There may be grammatical, syntax errors that are unintended.. TRAVEL OUTSIDE OF THE [place] IN LAST 30 DAYS: No - Related Data Allergies/Adverse Reactions: No Known Allergies Allergy (Verified 02/07/19 13:44) Past Medical History - Social History Frequency of alcohol use: None Drug Abuse: None - Past Medical History Cardiac Medical History: Reports: Hx Hypercholesterolemia Denies: Hx Coronary Artery Disease, Hx Heart Attack, Hx Hypertension Pulmonary Medical History: Denies: Hx Asthma, Hx Bronchitis, Hx COPD, Hx Pneumonia Neurological Medical History: Denies: Hx Cerebrovascular Accident, Hx Seizures Renal/ Medical History: Reports: Hx Kidney Stones. Denies: Hx Peritoneal Dialysis GI Medical History: Denies: Hx Hepatitis, Hx Hiatal Hernia, Hx Ulcer Musculoskeltal Medical History: Denies Hx Arthritis Psychiatric Medical History: Reports: Hx Anxiety, Hx Depression - and anxiety, Hx Post Traumatic Stress Disorder Infectious Medical History: Denies: Hx Hepatitis Past Surgical History: Reports: Hx Dilation and Curettage, Hx Gynecologic Surgery - D&C, Hx Hysterectomy, Hx Kidney (Renal Surgery) - lithotripsy. Denies: Hx Mastectomy, Hx Open Heart Surgery, Hx Pacemaker - Immunizations Immunizations up to date: Yes Hx Diphtheria, Pertussis, Tetanus Vaccination: Yes - Not sure History of Influenza Vaccine for 05/2017 - 10/2017 Season: No Physical Exam - Vital signs Vitals: Temp Pulse Resp BP Pulse Ox 97.8 F 92 18 124/93 H 100 02/07/19 13:48 02/07/19 13:48 02/07/19 13:48 02/07/19 13:48 02/07/19 13:48 Course - Vital Signs Vital signs: Temp Pulse Resp BP Pulse Ox 97.8 F 92 18 124/93 H 100 02/07/19 13:48 02/07/19 13:48 02/07/19 13:48 02/07/19 13:48 02/07/19 13:48 Doctor's Discharge - Discharge Referrals: ODETTE PALM DO [Primary Care Provider] - Follow up as needed
--- NOTE | 2019-02-09 22:57 | EKG REPORT ---
SEVERITY:- NORMAL ECG - SINUS RHYTHM : Confirmed by: Hu Tran 09-Feb-2019 22:56:45
== END 2019-02-07 17:01 | disposition left against medical advice (07) ==
LOC: ER 13:43
DX: R11.2 Nausea with vomiting, unspecified (principal); R42 Dizziness and giddiness; T45.0X6A Underdosing of antiallergic and antiemetic drugs, initial encounter; Z91.128 Patient's intentional underdosing of medication regimen for other reason; Z91.14 Patient's other noncompliance with medication regimen; Z53.20 Procedure and treatment not carried out because of patient's decision for unspecified reasons
CPT/HCPCS: 93005; 93010; 99281

== ENCOUNTER 2019-02-09 20:02 | Emergency (ER) | payer BC ==
[2019-02-09] MEDS ORDERED: NORMAL SALINE 1000 ML 1,000 ML IV ONE (20:09)
[2019-02-09] MEDS ORDERED: ONDANSETRON HCL INJ/PF 4 MG/2 ML SDV IV ONE (20:09)
[2019-02-09 21:04] LABS: ABSOLUTE BASOPHILS # (AUTO) 0.1 10^3/uL (0.0-0.2); ABSOLUTE EOSINOPHILS # (AUTO) 0.1 10^3/uL (0.0-0.6); ABSOLUTE LYMPHOCYTES (AUTO) 2.9 10^3/uL (0.5-4.7); ABSOLUTE MONOCYTES (AUTO) 0.6 10^3/uL (0.1-1.4); ABSOLUTE NEUT (AUTO) 6.1 10^3/uL (1.7-8.2); BASOPHILS % (AUTO) 1.3 % (0-2); EOSINOPHILS % (AUTO) 0.8 % (0-6); HEMOGLOBIN 14.7 g/dL (12.0-15.5); LYMPHOCYTES % (AUTO) 29.6 % (13-45); MEAN CORPUSCULAR HEMOGLOBIN 32.7 pg (27.0-33.4); MEAN CORPUSCULAR HGB CONC 34.9 g/dL (32.0-36.0); MEAN CORPUSCULAR VOLUME 94 fl (80-97); MONOCYTES % (AUTO) 6.2 % (3-13); PLATELET COUNT 328 10^3/uL (150-450); RED BLOOD COUNT 4.49 10^6/uL (3.72-5.28); RED CELL DISTRIBUTION WIDTH 12.6 % (11.5-14.0); SEGMENTED NEUTROPHILS % (AUTO) 62.1 % (42-78); TOTAL CELLS COUNTED % (AUTO) 100 %; WHITE BLOOD COUNT 9.9 10^3/uL (4.0-10.5)
[2019-02-09 21:21] LABS: ALANINE AMINOTRANSFERASE 18 U/L (9-52); ALBUMIN 4.3 g/dL (3.5-5.0); ALKALINE PHOSPHATASE 71 U/L (38-126); ANION GAP 10 (5-19); ASPARTATE AMINO TRANSFERASE 19 U/L (14-36); BILIRUBIN,DIRECT 0.2 mg/dL (0.0-0.4); BILIRUBIN,TOTAL 0.9 mg/dL (0.2-1.3); BLOOD UREA NITROGEN 6 mg/dL (7-20); CALCIUM 9.8 mg/dL (8.4-10.2); CARBON DIOXIDE 20 mmol/L (22-30); CHLORIDE 111 mmol/L (98-107); GLUCOSE 118 mg/dL (75-110); POTASSIUM 3.4 mmol/L (3.6-5.0); SODIUM 140.7 mmol/L (137-145); TOTAL PROTEIN 7.7 g/dL (6.3-8.2)
[2019-02-09 21:28] LABS: APPEARANCE,URINE CLEAR; BILIRUBIN,URINE NEGATIVE (NEGATIVE); COLOR,URINE YELLOW; GLUCOSE, URINE NEGATIVE (NEGATIVE); KETONES,URINE NEGATIVE (NEGATIVE); LEUKOCYTE ESTERASE,URINE NEGATIVE (NEGATIVE); NITRITE,URINE NEGATIVE (NEGATIVE); PROTEIN,URINE NEGATIVE (NEGATIVE); URINE SPECIFIC GRAVITY 1.008; UROBILINOGEN,URINE NEGATIVE mg/dL (<2.0)
[2019-02-09] MEDS ORDERED: SUCRALFATE 1 GM TABLET PO ONE (21:38)
[2019-02-09] MEDS ORDERED: PROMETHAZINE HCL INJ 25 MG/1 ML VIAL IM ONE (21:38)
--- NOTE | 2019-02-09 21:41 | ER Document Report ---
ED General - General Chief Complaint: Vomiting Stated Complaint: VOMITING Time Seen by Provider: 02/09/19 20:55 Primary Care Provider: YESSICA STERN MD [ACTIVE STAFF] - Follow up in 1 week Notes: Patient is a 39-year-old female that comes to the emergency department for chief complaint of dizziness, nausea, vomiting, abdominal pain. She states she has had this for 2 weeks. She states she has been seen here multiple times and also seen in [place] for a second opinion. She states that she does not feel like she is spinning but she feels lightheaded when she stands up. She was prescribed meclizine. She states that she vomited twice a day and had 2 episodes of loose stool. When she has abdominal pain it is lower. No current abdominal pain. She denies any chest pain, she denies passing out. She states she had a negative CTA of the chest in [place]. Only past medical history reported is hysterectomy, kidney stones, hyperlipidemia, anxiety/depression, marijuana use, cigarette smoking, denies alcohol, denies recreational drugs otherwise. Denies regular marijuana use or recent use. TRAVEL OUTSIDE OF THE [place] IN LAST 30 DAYS: No - Related Data Allergies/Adverse Reactions: No Known Allergies Allergy (Verified 02/07/19 13:44) Past Medical History - General Information source: Patient - Social History Smoking Status: Current Every Day Smoker Frequency of alcohol use: None Lives with: Family Family History: Reviewed & Not Pertinent Patient has suicidal ideation: No Patient has homicidal ideation: No - Past Medical History Cardiac Medical History: Reports: Hx Hypercholesterolemia Denies: Hx Coronary Artery Disease, Hx Heart Attack, Hx Hypertension Pulmonary Medical History: Denies: Hx Asthma, Hx Bronchitis, Hx COPD, Hx Pneumonia Neurological Medical History: Denies: Hx Cerebrovascular Accident, Hx Seizures Renal/ Medical History: Reports: Hx Kidney Stones. Denies: Hx Peritoneal Dialysis GI Medical History: Denies: Hx Hepatitis, Hx Hiatal Hernia, Hx Ulcer Musculoskeletal Medical History: Denies Hx Arthritis Psychiatric Medical History: Reports: Hx Anxiety, Hx Depression - and anxiety, Hx Post Traumatic Stress Disorder Infectious Medical History: Denies: Hx Hepatitis Past Surgical History: Reports: Hx Dilation and Curettage, Hx Gynecologic Surgery - D&C, Hx Hysterectomy, Hx Kidney (Renal Surgery) - lithotripsy. Denies: Hx Mastectomy, Hx Open Heart Surgery, Hx Pacemaker - Immunizations Immunizations up to date: Yes Hx Diphtheria, Pertussis, Tetanus Vaccination: Yes - Not sure Review of Systems - Review of Systems Constitutional: See HPI EENT: No symptoms reported Cardiovascular: See HPI Respiratory: No symptoms reported Gastrointestinal: See HPI Genitourinary: See HPI Female Genitourinary: No symptoms reported Musculoskeletal: No symptoms reported Skin: No symptoms reported Hematologic/Lymphatic: No symptoms reported Neurological/Psychological: No symptoms reported Physical Exam - Vital signs Vitals: Temp Pulse Resp BP Pulse Ox 98.1 F 69 17 132/93 H 95 02/09/19 20:53 02/09/19 20:53 02/09/19 20:53 02/09/19 20:53 02/09/19 20:53 - Notes Notes: GENERAL: Appears to have been recently crying, however she is alert and interacts well. She does not appear to be in distress. HEAD: Normocephalic, atraumatic. EYES: Pupils equal, round, and reactive to light. Extraocular movements intact. ENT: Oral mucosa moist, tongue midline. Oropharynx unremarkable. Airway patent. Nares patent, no nasal septal hematoma, TM's intact. NECK: Full range of motion. Supple. Trachea midline. LUNGS: Clear to auscultation bilaterally, no wheezes, rales, or rhonchi. No respiratory distress. HEART: Regular rate and rhythm. No murmur ABDOMEN: Soft, non-tender. Non-distended. Bowel sounds present in all 4 quadrants. GENITOURINARY: Deferred EXTREMITIES: Moves all 4 extremities spontaneously. No edema, normal radial and dorsalis pedis pulses bilaterally. No cyanosis. BACK: no cervical, thoracic, lumbar midline tenderness. No saddle anesthesia, normal distal neurovascular exam. Moves all extremities in full range of motion. NEUROLOGICAL: Alert and oriented x3. Normal speech. Cranial nerves II through XII grossly intact. PSYCH: Speaking rapidly, somewhat anxious, recently crying SKIN: Warm, dry, normal turgor. No rashes or lesions noted. Course - Re-evaluation Re-evalutation: Abdominal exam is unremarkable. Patient was initially tearful, she is given Phenergan IM Toradol and Carafate, afterwards on reevaluation she is smiling and well-appearing. CBC unremarkable, chemistry shows mild hypokalemia and bicarbonate of 20, given IV fluids and potassium. Her opponent is not elevated. EKG is nonspecific. Orthostatic vital signs were checked and these were completely normal with no elevation in heart rate or change in blood pressure. Patient also tolerated this very well. Patient is tolerating p.o. very well. Patient recently had a CTA and has a follow-up with cardiology for a Holter monitor because of her reported dizziness. Her neurological exam is normal. She has no dizziness at this time. She reports difficulty eating, intermittent abdominal pain, nausea, vomiting. She has no current symptoms especially after medication. Recommended she be treated for upper abdominal inflammation, hydrate, and then follow-up with her referral for additional management. I discussed return precautions in detail. Patient is satisfied with this plan, states appreciation, stable at time of discharge. - Vital Signs Vital signs: Temp Pulse Resp BP Pulse Ox 98.2 F 51 L 16 126/86 H 100 02/09/19 23:40 02/09/19 23:40 02/09/19 23:40 02/09/19 23:40 02/09/19 23:40 - Laboratory Result Diagrams: 02/09/19 20:41 02/09/19 20:41 Laboratory results interpreted by me: 02/09/19 20:41 Potassium 3.4 L Chloride 111 H Carbon Dioxide 20 L BUN 6 L Glucose 118 H - EKG Interpretation by Me Additional EKG results interpreted by me: 02/09/19 21:49 EKG shows sinus rhythm at a rate of 54, QTC of 398, CT interval of 180, no T wave inversions or ST segment changes in consecutive leads. No significant change from prior including the bradycardia. Discharge - Discharge Clinical Impression: Dehydration, Hypokalemia, Dizziness Vomiting Qualifiers: Vomiting type: unspecified Vomiting Intractability: non-intractable Nausea presence: with nausea Qualified Code(s): R11.2 - Nausea with vomiting, unspecified Abdominal pain Qualifiers: Abdominal location: generalized Qualified Code(s): R10.84 - Generalized abdominal pain Condition: Stable Disposition: HOME, SELF-CARE Additional Instructions: Your laboratory workup indicates some dehydration and low potassium. These have been adressed tonight. Your remaining workup is reassuring. I do suspect inflammation of your upper gastrointestinal tract. Take Phenergan for nausea, take Carafate and Pepcid as prescribed to help treat this, you can take additional Rolaids, Tums, Maalox, etc. if needed. You can take Tylenol for pain. Avoid NSAIDs, alcohol, smoking, caffeine, spicy food. Start with clear fluids, progress to bland diet (then hopefully normal diet after that). Follow-up with primary care or the GI referral for additional evaluation and treatment (especially if symptoms do not resolve with this treatment) including possible H. pylori testing or even endoscopy. Return if you worsen including uncontrolled vomiting, vomiting blood, black stools, severe pain, fever of 100.4 or greater, or any other concerning or worsening symptoms. Prescriptions: Famotidine [Pepcid 20 mg Tablet] 20 mg PO BID #20 tablet Promethazine HCl [Phenergan 25 mg Tablet] 25 mg PO Q6H PRN #20 tablet PRN Reason: Sucralfate [Carafate 1 gm Tablet] 1 gm PO QID #20 tablet Referrals: YESSICA STERN MD [ACTIVE STAFF] - Follow up in 1 week
[2019-02-09] MEDS ORDERED: POTASSIUM CHLORIDE 10 MEQ CAPSULE.ER PO ONE (22:52)
[2019-02-09 23:40] VITALS: BP 126/86
== END 2019-02-09 23:44 | disposition home or self-care (01) ==
LOC: ER 20:02
DX: E86.0 Dehydration (principal); E87.6 Hypokalemia; R42 Dizziness and giddiness; R11.2 Nausea with vomiting, unspecified; R10.84 Generalized abdominal pain; E78.00 Pure hypercholesterolemia, unspecified; F17.200 Nicotine dependence, unspecified, uncomplicated; Z90.710 Acquired absence of both cervix and uterus
CPT/HCPCS: 99284; 96372; 96361; 96374; 36415; 83735; 84703; 85025; 80053; 81001; 84484; J2550; J2405; J7030

== ENCOUNTER 2019-08-02 09:49 | Emergency (ER) | payer BC ==
[2019-08-02] MEDS ORDERED: ONDANSETRON 4 MG TAB.RAPDIS PO ONE (11:23)
--- NOTE | 2019-08-02 11:25 | ER Document Report ---
ED Medical Screen (RME) - General Chief Complaint: Abdominal Pain Stated Complaint: NAUSEA,ABDOMINAL PAIN,DIARRHEA Time Seen by Provider: 08/02/19 11:21 Primary Care Provider: ENDER HARDY PA-C [Primary Care Provider] - Follow up as needed Mode of Arrival: Ambulatory Information source: Patient Notes: 39-year-old female presents emergency department with complaints of epigastric abdominal pain nausea vomiting diarrhea that started approximately 4:00 this morning. Reports she ate [place]ian food last night. Denies fever. Has history of hysterectomy, still has her gallbladder. Epigastric area tender to palpate. I have greeted and performed a rapid initial assessment of this patient. A comprehensive ED assessment and evaluation of the patient, analysis of test results and completion of the medical decision making process will be conducted by additional ED providers. Dictation of this chart was performed using voice recognition software; therefore, there may be some unintended grammatical errors. TRAVEL OUTSIDE OF THE [place] IN LAST 30 DAYS: No - Related Data Allergies/Adverse Reactions: No Known Allergies Allergy (Verified 08/02/19 11:21) Past Medical History - Past Medical History Cardiac Medical History: Reports: Hx Hypercholesterolemia Denies: Hx Coronary Artery Disease, Hx Heart Attack, Hx Hypertension Pulmonary Medical History: Denies: Hx Asthma, Hx Bronchitis, Hx COPD, Hx Pneumonia Neurological Medical History: Denies: Hx Cerebrovascular Accident, Hx Seizures Renal/ Medical History: Reports: Hx Kidney Stones. Denies: Hx Peritoneal Dialysis GI Medical History: Denies: Hx Hepatitis, Hx Hiatal Hernia, Hx Ulcer Musculoskeltal Medical History: Denies Hx Arthritis Psychiatric Medical History: Reports: Hx Anxiety, Hx Depression - and anxiety, Hx Post Traumatic Stress Disorder Infectious Medical History: Denies: Hx Hepatitis Past Surgical History: Reports: Hx Dilation and Curettage, Hx Gynecologic Surgery - D&C, Hx Hysterectomy, Hx Kidney (Renal Surgery) - lithotripsy. Denies: Hx Mastectomy, Hx Open Heart Surgery, Hx Pacemaker - Immunizations Immunizations up to date: Yes Hx Diphtheria, Pertussis, Tetanus Vaccination: Yes - Not sure Physical Exam - Vital signs Vitals: Temp Pulse Resp BP Pulse Ox 98.3 F 119 H 16 145/95 H 100 08/02/19 10:02 08/02/19 10:02 08/02/19 10:02 08/02/19 10:02 08/02/19 10:02 Course - Vital Signs Vital signs: Temp Pulse Resp BP Pulse Ox 98.3 F 119 H 16 145/95 H 100 08/02/19 10:02 08/02/19 10:02 08/02/19 10:02 08/02/19 10:02 08/02/19 10:02 Doctor's Discharge - Discharge Referrals: ENDER HARDY PA-C [Primary Care Provider] - Follow up as needed
[2019-08-02 12:24] LABS: ABSOLUTE EOSINOPHILS # (AUTO) 0.1 10^3/uL (0.0-0.6); ABSOLUTE LYMPHOCYTES (AUTO) 1.6 10^3/uL (0.5-4.7); ABSOLUTE MONOCYTES (AUTO) 0.6 10^3/uL (0.1-1.4); ABSOLUTE NEUT (AUTO) 7.8 10^3/uL (1.7-8.2); BASOPHILS % (AUTO) 0.4 % (0-2); EOSINOPHILS % (AUTO) 0.8 % (0-6); HEMATOCRIT 44.5 % (36.0-47.0); HEMOGLOBIN 15.4 g/dL (12.0-15.5); LYMPHOCYTES % (AUTO) 16.1 % (13-45); MEAN CORPUSCULAR HEMOGLOBIN 32.7 pg (27.0-33.4); MEAN CORPUSCULAR HGB CONC 34.6 g/dL (32.0-36.0); MEAN CORPUSCULAR VOLUME 95 fl (80-97); MONOCYTES % (AUTO) 5.6 % (3-13); PLATELET COUNT 343 10^3/uL (150-450); RED BLOOD COUNT 4.71 10^6/uL (3.72-5.28); RED CELL DISTRIBUTION WIDTH 13.1 % (11.5-14.0); SEGMENTED NEUTROPHILS % (AUTO) 77.1 % (42-78); TOTAL CELLS COUNTED % (AUTO) 100 %; WHITE BLOOD COUNT 10.2 10^3/uL (4.0-10.5)
--- NOTE | 2019-08-02 12:28 | RADIOLOGY REPORT (SQ) ---
EXAM DESCRIPTION: U/S ABDOMEN LIMITED W/O DOP COMPLETED DATE/TIME: 08/02/2019 12:09 pm REASON FOR STUDY: abd pain COMPARISON: 2011 TECHNIQUE: Dynamic and static grayscale images acquired of the right upper quadrant and recorded on PACS. Additional selected color Doppler and spectral images recorded. LIMITATIONS: Study limited due to acoustical interference from fat or from air in the bowel. Patien t also not NPO. FINDINGS: PANCREAS: Visualized pancreas and duct normal. Parts of pancreas poorly seen secondary to acoustical interference from fat or from air in the bowel. LIVER: Fatty. No mass. Normal size. LIVER VASCULATURE: Normal directional flow of the main portal vein and hepatic veins. GALLBLADDER: No stones. Normal wall thickness. No pericholecystic fluid. ULTRASOUND-DETECTED YATES'S SIGN: Negative. INTRAHEPATIC DUCTS AND COMMON DUCT: CBD and intrahepatic ducts normal caliber. No filling defects. INFERIOR VENA CAVA: Normal flow. AORTA: No aneurysm. RIGHT KIDNEY: Normal size. Normal echogenicity. No solid or suspicious masses. No hydronephrosis. No calcifications. PERITONEAL CAVITY AND RIGHT PLEURAL SPACE: No ascites or effusions. OTHER: No other significant finding. IMPRESSION: 1. Fatty liver. 2. No acute or suspicious right upper quadrant abnormality. TECHNICAL DOCUMENTATION: JOB ID: [id number] [employer]- All Rights Reserved Reading location - IP/workstation name: [email or web address]
[2019-08-02 12:33] LABS: APPEARANCE,URINE CLEAR; BILIRUBIN,URINE NEGATIVE (NEGATIVE); COLOR,URINE YELLOW; GLUCOSE, URINE NEGATIVE (NEGATIVE); KETONES,URINE NEGATIVE (NEGATIVE); LEUKOCYTE ESTERASE,URINE NEGATIVE (NEGATIVE); NITRITE,URINE NEGATIVE (NEGATIVE); PROTEIN,URINE NEGATIVE (NEGATIVE); URINE SPECIFIC GRAVITY 1.017; UROBILINOGEN,URINE NEGATIVE mg/dL (<2.0)
[2019-08-02 12:43] LABS: ALBUMIN 4.5 g/dL (3.5-5.0); ALKALINE PHOSPHATASE 77 U/L (38-126); ANION GAP 11 (5-19); ASPARTATE AMINO TRANSFERASE 29 U/L (14-36); BILIRUBIN,DIRECT 0.1 mg/dL (0.0-0.4); BILIRUBIN,TOTAL 0.8 mg/dL (0.2-1.3); BLOOD UREA NITROGEN 12 mg/dL (7-20); CALCIUM 9.9 mg/dL (8.4-10.2); CARBON DIOXIDE 23 mmol/L (22-30); CHLORIDE 107 mmol/L (98-107); GLUCOSE 130 mg/dL (75-110); POTASSIUM 4.4 mmol/L (3.6-5.0); TOTAL PROTEIN 8.1 g/dL (6.3-8.2)
[2019-08-02] MEDS ORDERED: ONDANSETRON ODT 4 MG TAB (6 TAB/ER DISP) PO PRN (14:24)
--- NOTE | 2019-08-02 14:25 | ER Document Report ---
ED GI/ - General Chief Complaint: Abdominal Pain Stated Complaint: NAUSEA,ABDOMINAL PAIN,DIARRHEA Time Seen by Provider: 08/02/19 11:21 Primary Care Provider: ENDER HARDY PA-C [NO LOCAL MD] - Follow up as needed Mode of Arrival: Ambulatory Information source: Patient, [facility] Records Notes: This 39-year-old female patient comes emergency room complaining of onset at 5:30 AM this morning of nausea vomiting and watery diarrhea with upper abdominal discomfort. She reports eating Arabic food at a restaurant in [place] yesterday evening about 7 PM. She states about a month ago she ate at the same restaurant and suffered the same symptoms. She states she normally has frequent diarrhea, but he does not like the watery diarrhea that she had today. She did receive some Zofran when she got here about 2 hours ago. At this time she states her abdomen is feeling much better, her nauseousness is gone, she has not had any more of the watery diarrhea. She states that she did actually just take a nap and is feeling much better and feels comfortable going home. She is not sure what she may have eaten this time or the previous visit that may have triggered the symptoms. TRAVEL OUTSIDE OF THE [place] IN LAST 30 DAYS: No - Related Data Allergies/Adverse Reactions: No Known Allergies Allergy (Verified 08/02/19 11:21) Home Medications: ambien. xanax Past Medical History - General Information source: Patient - Social History Smoking Status: Current Every Day Smoker Cigarette use (# per day): Yes Chew tobacco use (# tins/day): No Smoking Education Provided: No Frequency of alcohol use: None Drug Abuse: None Lives with: Spouse/Significant other Family History: Reviewed & Not Pertinent Patient has suicidal ideation: No Patient has homicidal ideation: No Renal/ Medical History: Reports: Hx Kidney Stones GI Medical History: Reports: Hx Irritable Bowel - Patient's history is c/w irritable bowel syndrome, diarrhea type. Psychiatric Medical History: Reports: Hx Anxiety, Hx Depression, Hx Post Traumatic Stress Disorder Past Surgical History: Reports: Hx Dilation and Curettage, Hx Gynecologic Surgery - D&C, Hx Hysterectomy, Hx Kidney (Renal Surgery) - lithotripsy - Immunizations Immunizations up to date: Yes Hx Diphtheria, Pertussis, Tetanus Vaccination: Yes - Not sure Review of Systems - Review of Systems Constitutional: No symptoms reported EENT: No symptoms reported Cardiovascular: No symptoms reported Respiratory: No symptoms reported Gastrointestinal: See HPI Genitourinary: No symptoms reported Female Genitourinary: No symptoms reported Musculoskeletal: No symptoms reported Skin: No symptoms reported Hematologic/Lymphatic: No symptoms reported Neurological/Psychological: No symptoms reported Physical Exam - Vital signs Vitals: Temp Pulse Resp BP Pulse Ox 98.3 F 119 H 16 145/95 H 100 08/02/19 10:02 08/02/19 10:02 08/02/19 10:02 08/02/19 10:02 08/02/19 10:02 Interpretation: Normal - General General appearance: Appears well, Alert - HEENT Head: Normocephalic, Atraumatic Eyes: Normal Pupils: PERRL - Respiratory Respiratory status: No respiratory distress Breath sounds: Normal - Cardiovascular Rhythm: Regular Heart sounds: Normal auscultation Murmur: No - Abdominal Inspection: Normal Bowel sounds: Normal Tenderness: Nontender - Back Back: Normal - Extremities General upper extremity: Normal inspection General lower extremity: Normal inspection - Neurological Neuro grossly intact: Yes - Psychological Associated symptoms: Normal affect, Normal mood Course - Vital Signs Vital signs: Temp Pulse Resp BP Pulse Ox 98.3 F 119 H 16 145/95 H 100 08/02/19 11:21 08/02/19 10:02 08/02/19 11:21 08/02/19 10:02 08/02/19 11:21 - Laboratory Result Diagrams: 08/02/19 12:05 08/02/19 12:05 Laboratory results interpreted by me: 08/02/19 12:05 Glucose 130 H - Diagnostic Test Radiology reviewed: Image reviewed, Reports reviewed - Gallbladder ultrasound is significant for fatty liver, otherwise unremarkable. Discharge - Discharge Clinical Impression: Nausea, vomiting and diarrhea Condition: Stable Disposition: HOME, SELF-CARE Additional Instructions: Food Poisoning: Your symptoms may be due to food poisoning. Your symptoms may also just be due to an intolerance to one of the foods you ate last night. Food poisoning is due to bacterial poisons in food. It occurs when bacteria (usually staph) get into food, then have time to grow before the food is eaten. Symptoms usually begin about an hour after the contaminated food is eaten -- typically abdominal cramps, vomiting, and diarrhea. Refrigeration of food usually prevents food poisoning. Food poisoning usually resolves within a few hours without treatment. The bowel should be rested: nothing by mouth for about four hours, then frequent sips of clear liquids for another six to eight hours. Further treatment may be required for severe or prolonged vomiting, dehydration, or severe abdominal cramping. Call the doctor or come back if symptoms do not resolve within 24 hours, or if you worsen in any way -- for example you develop worsening pain, high fever, or blood in the stools. Try taking the Zofran for nausea if needed. You may try taking Imodium right ear if the diarrhea continues to be a problem. Follow-up with your primary care provider if not improving. RETURN TO THE EMERGENCY ROOM IF ANY NEW OR WORSENING SYMPTOMS. Prescriptions: Ondansetron [Zofran Odt 4 mg Tablet] 1 - 2 tab PO Q4H PRN #10 tab.rapdis PRN Reason: Referrals: ENDER HARDY PA-C [NO LOCAL MD] - Follow up as needed
[2019-08-02 15:05] VITALS: BP 105/79
== END 2019-08-02 15:05 | disposition home or self-care (01) ==
LOC: ER 09:49
DX: R11.2 Nausea with vomiting, unspecified (principal); R19.7 Diarrhea, unspecified; R10.9 Unspecified abdominal pain; R10.10 Upper abdominal pain, unspecified; F17.210 Nicotine dependence, cigarettes, uncomplicated
CPT/HCPCS: 99284; 36415; 83690; 85025; 80053; 81001; 76705; S0119

== ENCOUNTER 2019-08-31 18:44 | Emergency (ER) | payer BC ==
[2019-08-31 19:20] VITALS: BP 127/81
== END 2019-08-31 21:14 | disposition left against medical advice (07) ==
LOC: ER 18:44
DX: Z53.21 Procedure and treatment not carried out due to patient leaving prior to being seen by health care provider (principal); W57.XXXA Bitten or stung by nonvenomous insect and other nonvenomous arthropods, initial encounter

== ENCOUNTER 2019-10-21 05:28 | Emergency (ER) | payer BC ==
--- NOTE | 2019-10-21 05:58 | ER Document Report ---
HPI - HPI Patient complains to provider of: cough congestion Time Seen by Provider: 10/21/19 05:45 Onset: Other - 2 days Pain Level: 3 Context: This 39-year-old female presents to the emergency department with complaints of productive cough and chest congestion for the past 2 days. Reports she is felt a little bit nauseated also. Reports she has been coughing up some chunky green sputum. Denies fever and vomiting. Denies diarrhea. Patient reports she is a smoker but she has not been able to smoke as much as she usually does. Patient also gives history of obstructive airway disease for which she was prescribed Advair and nebulized treatments but she does not use it because it makes her feel anxious. Patient also reports she feels very dry even though she has been drinking lots of water. Associated Symptoms: Productive cough Exacerbated by: Denies Relieved by: Denies Similar symptoms previously: No Recently seen / treated by doctor: No - REPRODUCTIVE Reproductive: DENIES: : Past Medical History - General Information source: Patient - Social History Smoking Status: Current Every Day Smoker Cigarette use (# per day): Yes Frequency of alcohol use: None Drug Abuse: None Occupation: ehs manager of [employer] Family History: Reviewed & Not Pertinent Patient has suicidal ideation: No Patient has homicidal ideation: No - Past Medical History Cardiac Medical History: Reports: Hx Hypercholesterolemia Denies: Hx Coronary Artery Disease, Hx Heart Attack, Hx Hypertension Pulmonary Medical History: Denies: Hx Asthma, Hx Bronchitis, Hx COPD, Hx Pneumonia Neurological Medical History: Denies: Hx Cerebrovascular Accident, Hx Seizures Renal/ Medical History: Reports: Hx Kidney Stones. Denies: Hx Peritoneal Dialysis GI Medical History: Reports: Hx Irritable Bowel - Patient's history is c/w irritable bowel syndrome, diarrhea type.. Denies: Hx Hepatitis, Hx Hiatal Hernia, Hx Ulcer Musculoskeletal Medical History: Denies Hx Arthritis Psychiatric Medical History: Reports: Hx Anxiety, Hx Depression, Hx Post Traumatic Stress Disorder Infectious Medical History: Denies: Hx Hepatitis Past Surgical History: Reports: Hx Dilation and Curettage, Hx Gynecologic Surgery - D&C, Hx Hysterectomy, Hx Kidney (Renal Surgery) - lithotripsy. Denies: Hx Mastectomy, Hx Open Heart Surgery, Hx Pacemaker - Immunizations Immunizations up to date: Yes Hx Diphtheria, Pertussis, Tetanus Vaccination: Yes - Not sure Vertical Provider Document - CONSTITUTIONAL Agree With Documented VS: Yes Exam Limitations: No Limitations General Appearance: WD/WN, No Apparent Distress - INFECTION CONTROL TRAVEL OUTSIDE OF THE [place] IN LAST 30 DAYS: No - HEENT HEENT: Atraumatic, Normal ENT Exam, Normocephalic. negative: Conjuctival Injection, Pharyngeal Erythema, Tympanic Membrane Red, Tympanic Membrane Bulging - NECK Neck: Normal Inspection, Supple. negative: Lymphadenopathy-Left, Lymphadenopathy-Right - RESPIRATORY Respiratory: Breath Sounds Normal, No Respiratory Distress. negative: Rhonchi, Wheezing - CARDIOVASCULAR Cardiovascular: Regular Rate, Regular Rhythm - GI/ABDOMEN Gastrointestinal: Abdomen Soft, Abdomen Non-Tender - BACK Back: Normal Inspection - MUSCULOSKELETAL/EXTREMETIES Musculoskeletal/Extremeties: MAEW, FROM - NEURO Level of Consciousness: Awake, Alert, Appropriate Motor/Sensory: No Motor Deficit - DERM Integumentary: Warm, Dry, No Rash Course - Re-evaluation Re-evalutation: 10/21/19 05:56 39-year-old female presents with productive cough and congestion for the past 2 days. Reports she is coughing up some chunky green sputum. Denies fever reports some nausea. Also reports she feels really dry even though she has been drinking lots of water. 10/21/19 07:28 Chest x-ray negative for pneumonia. Patient vital signs stable. Respiratory rate even unlabored. She was instructed on Namrata Choe instructed on monitoring her symptoms follow-up with the primary care provider within a week for recheck return for concerns. She verbalized understanding to all instructions. Chest X-Ray 10/21/19 05:43 IMPRESSION: 1. No acute pulmonary process identified. - Vital Signs Vital signs: Temp Pulse Resp BP Pulse Ox 98.0 F 96 115/82 97 10/21/19 05:33 10/21/19 05:33 10/21/19 05:33 10/21/19 05:33 - Diagnostic Test Radiology reviewed: Image reviewed, Reports reviewed Discharge - Discharge Clinical Impression: Cough Condition: Stable Disposition: HOME, SELF-CARE Instructions: Stop Smoking ([facility]), Tessalon Daija ([facility]) Additional Instructions: *You have been evaluated for a cough, congestion *Your chest xray was negative for pneumonia *Take medication as prescribed for your cough *Increase fluids, quit smoking *Monitor your temperature, take Tylenol as indicated *Follow up with a primary care provider within one week for recheck *Return to ED for increasing fever, cough, worsening condition, changes, needs Prescriptions: Benzonatate [Tessalon Perles 100 mg Capsule] 100 mg PO ASDIR PRN #20 capsule PRN Reason: Forms: Smoking Cessation Education, Return to Work Referrals: ENDER HARDY PA-C [Primary Care Provider] - Follow up in 3-5 days
--- NOTE | 2019-10-21 06:58 | RADIOLOGY REPORT (SQ) ---
EXAM DESCRIPTION: XR CHEST 1 VIEW COMPLETED DATE/TME: 10/21/2019 05:43 CLINICAL HISTORY: SOB COMPARISON: 12/05/2015 FINDINGS: Single frontal view of the chest. Cardiomediastinal silhouette: Normal size and contour. Lungs: No consolidation, pneumothorax, or pleural effusion. Bones: No acute osseous abnormality. Upper abdomen: No abnormality identified. IMPRESSION: 1. No acute pulmonary process identified.
[2019-10-21 07:16] VITALS: BP 125/84
== END 2019-10-21 07:16 | disposition home or self-care (01) ==
LOC: ER 05:28
DX: R05 Cough (principal); R09.89 Other specified symptoms and signs involving the circulatory and respiratory systems; R11.0 Nausea; F17.210 Nicotine dependence, cigarettes, uncomplicated; J98.9 Respiratory disorder, unspecified; T48.6X6A Underdosing of antiasthmatics, initial encounter; Z91.128 Patient's intentional underdosing of medication regimen for other reason; Z91.14 Patient's other noncompliance with medication regimen
CPT/HCPCS: 71045; 99283

== ENCOUNTER 2019-10-27 21:31 | Observation (INO) | payer BC ==
[2019-10-28] MEDS ORDERED: NORMAL SALINE 500 ML IV ONE (01:18)
[2019-10-28] MEDS ORDERED: KETOROLAC TROMETHAMINE INJ/PF 30 MG/1 ML SDV IV ONE (01:19)
--- NOTE | 2019-10-28 01:23 | ER Document Report ---
ED GI Bleed / Rectal Pain - General Chief Complaint: rectal bleeding and pain Stated Complaint: RECTAL BLEEDING Time Seen by Provider: 10/28/19 00:24 Primary Care Provider: ENDER HARDY PA-C [Primary Care Provider] - Follow up as needed Notes: 39-year-old woman who has been suffering from complications of constipation apparently has been using [id number] medications and disimpacting herself at home. She now notes some rectal bleeding and urgency to have a bowel movement. She presents to the emergency department for evaluation of constipation and rectal bleeding. She also complains of pain in the lower abdominal area extending down into the pelvic and vaginal area with severe pain in her rectal region. TRAVEL OUTSIDE OF THE [place] IN LAST 30 DAYS: No - Related Data Allergies/Adverse Reactions: No Known Allergies Allergy (Verified 10/21/19 05:34) Past Medical History - Social History Smoking Status: Current Some Day Smoker Chew tobacco use (# tins/day): No Frequency of alcohol use: None Drug Abuse: None Family History: Reviewed & Not Pertinent Patient has suicidal ideation: No Patient has homicidal ideation: No - Past Medical History Cardiac Medical History: Reports: Hx Hypercholesterolemia Denies: Hx Coronary Artery Disease, Hx Heart Attack, Hx Hypertension Pulmonary Medical History: Denies: Hx Asthma, Hx Bronchitis, Hx COPD, Hx Pneumonia Neurological Medical History: Denies: Hx Cerebrovascular Accident, Hx Seizures Renal/ Medical History: Reports: Hx Kidney Stones. Denies: Hx Peritoneal Dialysis GI Medical History: Reports: Hx Irritable Bowel - Patient's history is c/w irritable bowel syndrome, diarrhea type.. Denies: Hx Hepatitis, Hx Hiatal Herni a, Hx Ulcer Musculoskeletal Medical History: Denies Hx Arthritis Psychiatric Medical History: Reports: Hx Anxiety, Hx Depression, Hx Post Traumatic Stress Disorder Infectious Medical History: Denies: Hx Hepatitis Past Surgical History: Reports: Hx Dilation and Curettage, Hx Gynecologic Surgery - D&C, Hx Hysterectomy, Hx Kidney (Renal Surgery) - lithotripsy. Denies: Hx Mastectomy, Hx Open Heart Surgery, Hx Pacemaker - Immunizations Immunizations up to date: Yes Hx Diphtheria, Pertussis, Tetanus Vaccination: Yes - Not sure Review of Systems - Review of Systems Notes: Constitutional: Negative for fever. HENT: Negative for sore throat. Eyes: Negative for visual changes. Cardiovascular: Negative for chest pain. Respiratory: Negative for shortness of breath. Gastrointestinal: + Rectal and lower abdominal pain, + constipation, + diarrhea. Genitourinary: + Vaginal pain Musculoskeletal: Negative for back pain. Skin: Negative for rash. Neurological: Negative for headaches, weakness or numbness. 10 point ROS negative except as marked above and in HPI. Physical Exam - Vital signs Vitals: Temp Pulse Resp BP Pulse Ox 98.6 F 107 H 18 134/81 H 100 10/27/19 22:00 10/27/19 22:00 10/27/19 22:00 10/27/19 22:00 10/27/19 22:00 - Notes Notes: PHYSICAL EXAMINATION: Physical Exam: General: Well-nourished well-developed 39-year-old woman in moderate distress secondary to pain rectal and lower abdominal HEENT: NC/AT, pupils equal round and reactive to light, MM moist,nares clear, oropharynx clear, airway patent Neck: supple, no adenopathy, no masses. Good range of motion Lungs: clear, no wheezing, no rales no rhonchi CVS: Regular rate and rhythm no murmur gallop or rub Abdomen: Soft, active, lower abdominal tenderness, rectal sign external hemorrhoid, rectal tenderness, bright red blood noted on the glove, no masses, no stool in the rectal vault Ext: No edema, clubbing or cyanosis. Neuro: Alert and responsive, moving all 4 extremities on command, cranial nerves intact, no focal findings Skin: Intact no open lesions, no rash PSYCH: Normal mood, normal affect. Course - Re-evaluation Re-evalutation: 10/28/19 05:02 39-year-old woman suffered from constipation over the past few days. Taken milk of magnesia and tonight self disimpacted herself states she developed diarrhea and then blood was noted with severe pain in the rectal area. She rates her pain 10/10 she denies fever or chills, denies cough or dysuria. Review of her laboratory data revealed a white blood count of 19,000. Lactic acid 1.6, blood cultures x2, IV fluids, IV antibiotics Zosyn 3.375 g IV was given. A question of a proctitis or colitis is brought into question and a CT of the abdomen and pelvis with IV contrast is ordered. This x-ray and urinalysis were also added to the evaluation. 10/28/19 06:02 CT of the abdomen and pelvis with IV contrast reveals thickening in the rectal ulcer and stranding in the soft tissue. Findings are supportive of a diagnosis of acute proctitis. Given a white count of 19,000, and rectal bleeding is my believe that the patient deserves an observation period in the hospital for further evaluation and treatment and possibly GI consultation. - Vital Signs Vital signs: Temp Pulse Resp BP Pulse Ox 98.3 F 71 13 118/77 98 10/28/19 04:04 10/28/19 03:19 10/28/19 05:56 10/28/19 05:56 10/28/19 05:56 - Laboratory Result Diagrams: 10/28/19 01:55 10/28/19 01:55 Laboratory results interpreted by me: 10/28/19 10/28/19 10/28/19 01:55 01:55 04:15 WBC 19.0 H Lymph % (Auto) 7.4 L Absolute Neuts (auto) 16.7 H Seg Neutrophils % 88.0 H Glucose 162 H Urine Ketones TRACE H - Diagnostic Test Radiology reviewed: Image reviewed - KUB x-ray: Nonspecific gas pattern, no obstruction seen., Reports reviewed Critical Care Note - Critical Care Note Total time excluding time spent on procedures (mins): 60 - Critical care time spent obtaining history from patient or surrogate, discussions with consultants, development of treatment plan with patient or surrogate, evaluation of patient's response to treatment, examination of patient, ordering and performing treatm ents and interventions, ordering and review of laboratory studies, re-evaluation of patient's condition, ordering and review of radiographic studies and review of old charts Discharge - Discharge Clinical Impression: Proctitis, Rectal bleeding, Rectal pain Leukocytosis Qualifiers: Leukocytosis type: unspecified Qualified Code(s): D72.829 - Elevated white blood cell count, unspecified Condition: Good Disposition: ADMITTED INPATIENT Referrals: ENDER HARDY PA-C [Primary Care Provider] - Follow up as needed
[2019-10-28 02:05] LABS: ABSOLUTE LYMPHOCYTES (AUTO) 1.4 10^3/uL (0.5-4.7); ABSOLUTE MONOCYTES (AUTO) 0.8 10^3/uL (0.1-1.4); ABSOLUTE NEUT (AUTO) 16.7 10^3/uL (1.7-8.2); BASOPHILS % (AUTO) 0.2 % (0-2); HEMATOCRIT 42.2 % (36.0-47.0); HEMOGLOBIN 14.6 g/dL (12.0-15.5); LYMPHOCYTES % (AUTO) 7.4 % (13-45); MEAN CORPUSCULAR HEMOGLOBIN 32.5 pg (27.0-33.4); MEAN CORPUSCULAR HGB CONC 34.6 g/dL (32.0-36.0); MEAN CORPUSCULAR VOLUME 94 fl (80-97); MONOCYTES % (AUTO) 4.4 % (3-13); PLATELET COUNT 327 10^3/uL (150-450); RED BLOOD COUNT 4.51 10^6/uL (3.72-5.28); RED CELL DISTRIBUTION WIDTH 12.3 % (11.5-14.0); TOTAL CELLS COUNTED % (AUTO) 100 %
[2019-10-28 02:18] LABS: ALBUMIN 4.3 g/dL (3.5-5.0); ALKALINE PHOSPHATASE 90 U/L (38-126); ANION GAP 11 (5-19); ASPARTATE AMINO TRANSFERASE 24 U/L (14-36); BILIRUBIN,TOTAL 0.6 mg/dL (0.2-1.3); BLOOD UREA NITROGEN 13 mg/dL (7-20); CALCIUM 9.3 mg/dL (8.4-10.2); CARBON DIOXIDE 22 mmol/L (22-30); CHLORIDE 106 mmol/L (98-107); GLUCOSE 162 mg/dL (75-110); POTASSIUM 4.5 mmol/L (3.6-5.0); TOTAL PROTEIN 7.5 g/dL (6.3-8.2)
--- NOTE | 2019-10-28 02:47 | RADIOLOGY REPORT (SQ) ---
Abdomen single view on 10/28/2019 at 2:03 AM CLINICAL INDICATION: Generalized abdominal pain COMPARISON: 03/22/2013 FINDINGS: Calcifications in the pelvis are consistent with phleboliths. No other abnormal calcification or mass effect is noted. Bowel gas pattern is nonspecific. No increased stool to suggest constipation is noted. No bony abnormality is noted. IMPRESSION: Nonspecific abdomen.
[2019-10-28] MEDS ORDERED: PIPERACILLIN/TAZOBACTAM 3.375 GM VIAL IV ONE (03:26)
[2019-10-28] MEDS ORDERED: HYDROMORPHONE HCL INJ/PF 2 MG/ML AMPULE IV ONE (03:28)
[2019-10-28] MEDS ORDERED: LORAZEPAM INJ 2 MG/1 ML VIAL IV ONE (03:28)
[2019-10-28] MEDS: NORMAL SALINE 1000 ML 1,000 ML IV PRN ×3 (03:50→14:43)
[2019-10-28 05:03] LABS: APPEARANCE,URINE CLEAR; BILIRUBIN,URINE NEGATIVE (NEGATIVE); COLOR,URINE YELLOW; GLUCOSE, URINE NEGATIVE (NEGATIVE); KETONES,URINE TRACE mg/dL (NEGATIVE); PROTEIN,URINE NEGATIVE (NEGATIVE); URINE SPECIFIC GRAVITY 1.023; UROBILINOGEN,URINE NEGATIVE mg/dL (<2.0)
--- NOTE | 2019-10-28 05:49 | RADIOLOGY REPORT (SQ) ---
EXAM DESCRIPTION: CT ABDOMEN PELVIS WITH IV CONTRAST COMPLETED DATE/TME: 10/28/2019 03:29 CLINICAL HISTORY: 39 years, Female, Rectal pain COMPARISON: 03/25/2012 TECHNIQUE: Axial CT images of the abdomen and pelvis were obtained after the demonstration of IV contrast. Sagittal and coronal reformats were performed. DL [id number] Images stored on PACS. All CT scanners at this facility use dose modulation, iterative reconstruction, and/or weight based dosing when appropriate to reduce radiation dose to as low as reasonably achievable (ALARA). [facility]: Dose Right [facility]: CareDose [facility]: Dose Right [facility]: Teradose 4D [facility]: BooknGo LIMITATIONS: None. FINDINGS: The lung bases are clear. There is mild fatty infiltration of the liver. The gallbladder, pancreas, spleen, and adrenal glands are unremarkable. Both kidneys enhance normally. No evidence of urolithiasis or hydronephrosis. There is no intraperitoneal free air or fluid. The abdominal aorta is normal in caliber. There is no lymphadenopathy. The stomach and small bowel are unremarkable. The appendix is normal. Fluid is noted within the colon. Scattered diverticula are are present without evidence of diverticulitis. There is mild circumferential thickening of the rectum with mild adjacent stranding. Hysterectomy. A ruptured left ovarian cyst is noted. The urinary bladder is unremarkable. There are no lytic or blastic bone lesions. IMPRESSION: Circumferential thickening of the rectum with mild adjacent stranding, likely due to proctitis. Fluid within the colon likely related to diarrhea. Ruptured left ovarian cyst. TECHNICAL DOCUMENTATION: Quality ID # 436: Final reports with documentation of one or more dose reduction techniques (e.g., Automated exposure control, adjustment of the mA and/or kV according to patient size, use of iterative reconstruction technique) copyright 2011 [employer] All Rights Reserved
--- NOTE | 2019-10-28 05:54 | RADIOLOGY REPORT (SQ) ---
EXAM DESCRIPTION: XR CHEST 1 VIEW COMPLETED DATE/TME: 10/28/2019 03:30 CLINICAL HISTORY: 39 years, Female, Possible sepsis COMPARISON: 10/21/2019 NUMBER OF VIEWS: One TECHNIQUE: AP view the chest LIMITATIONS: None. FINDINGS: The lungs are clear. The heart is normal in size. There is no pneumothorax or pleural effusion. The bones are unremarkable. IMPRESSION: No acute cardiopulmonary abnormality copyright 2010 [email or web address]- All Rights Reserved
[2019-10-28] MEDS ORDERED: NORMAL SALINE 1000 ML 1,000 ML IV ONE (06:52)
--- NOTE | 2019-10-28 08:31 | PDOC H&P ---
History of Present Illness Admission Date/PCP: 10/28/19 06:53 ENDER HARDY PA-C Patient complains of: Constipation associated with rectal pain and bleed. History of Present Illness: GEORGES SALDANA is a 39 year old female with history of constipation, intestin al obstruction has a previous colonoscopy in March last year which came back normal at [facility] came to the emergency room with complaints of severe constipation last bowel movement is on [facility]es[facility] and it did not work and she tried for half an hour to check of the stool finally successful later on having the severe pain and noticed blood on the underwear decided to come to the emergency room for further evaluation. CT scan in the ER indicates rectal ulcer with proctitis. Bleeding scan is negative. Patient agreed to stay in the hospital for further management. I discussed about a repeat colonoscopy for the reason of rectal ulcer presence on CT scan she does not want a colonoscopy. According to her she had a colonoscopy in March last year. He said no vomiting denies any nausea denies any fevers. Her main complaints is pain now. Past Medical History Cardiac Medical History: Reports: Hyperlipidema Denies: Coronary Artery Disease, Myocardial Infarction, Hypertension Pulmonary Medical History: Denies: Asthma, Bronchitis, Chronic Obstructive Pulmonary Disease (COPD), Pneumonia EENT Medical History: Reports: None Neurological Medical History: Denies: Seizures Endocrine Medical History: Reports: None Renal/ Medical History: Reports: None Malignancy Medical History: Reports: None GI Medical History: Reports: None Denies: Hepatitis, Hiatal Hernia Musculoskeltal Medical History: Denies: Arthritis Psychiatric Medical History: Reports: Depression, Post Traumatic Stress Disorder Hematology: Denies: Anemia Past Surgical History Past Surgical History: Reports: Hysterectomy Denies: Amputation, Mastectomy, Pacemaker Social History Information Source: Patient Smoking Status: Current Some Day Smoker Electronic Cigarette use?: No - Advance Directive Resuscitation Status: Full Code Family History Family History: Reviewed & Not Pertinent Parental Family History Reviewed: Yes - Hypertension Children Family History Reviewed: Yes Sibling(s) Family History Reviewed.: Yes Medication/Allergy Allergies/Adverse Reactions: No Known Allergies Allergy (Verified 10/21/19 05:34) Review of Systems Constitutional: ABSENT: fever(s), headache(s), weakness Eyes: ABSENT: visual disturbances Ears: ABSENT: hearing changes Respiratory: ABSENT: cough, hemoptysis Gastrointestinal: ABSENT: abdominal pain, constipation, diarrhea, hematemesis, hematochezia, nausea, vomiting Neurological: ABSENT: abnormal gait, abnormal speech, confusion, dizziness, focal weakness, syncope Psychiatric: ABSENT: anxiety, depression, homidical ideation, suicidal ideation Endocrine: ABSENT: cold intolerance, heat intolerance, polydipsia, polyuria Physical Exam Vital Signs: Temp Pulse Resp BP Pulse Ox 98.3 F 71 20 129/87 H 99 10/28/19 04:04 10/28/19 03:19 10/28/19 07:31 10/28/19 07:31 10/28/19 07:31 Intake & Output 10/27/19 10/28/19 10/29/19 06:59 06:59 06:59 Intake Total 2500 Balance 2500 Weight 85.4 kg General appearance: PRESENT: no acute distress Head exam: PRESENT: atraumatic Eye exam: PRESENT: PERRLA Ear exam: PRESENT: normal external ear exam Teeth exam: PRESENT: poor dentation Neck exam: PRESENT: carotid bruit Respiratory exam: PRESENT: decreased breath sounds Cardiovascular exam: PRESENT: RRR. ABSENT: diastolic murmur, rubs, systolic murmur Pulses: PRESENT: normal dorsalis pedis pul GI/Abdominal exam: PRESENT: normal bowel sounds, soft. ABSENT: distended, guarding, mass, organolmegaly, rebound, tenderness Rectal exam: PRESENT: deferred Extremities exam: PRESENT: full ROM. ABSENT: calf tenderness, clubbing, pedal edema Neurological exam: PRESENT: alert, awake, oriented to person, oriented to place, oriented to time, oriented to situation, CN II-XII grossly intact. ABSENT: motor sensory deficit Psychiatric exam: PRESENT: appropriate affect, normal mood. ABSENT: homicidal ideation, suicidal ideation Results Laboratory Results: 10/28/19 01:55 10/28/19 01:55 10/28/19 10/28/19 10/28/19 01:55 01:55 03:36 WBC 19.0 H RBC 4.51 Hgb 14.6 Hct 42.2 MCV 94 MCH 32.5 MCHC 34.6 RDW 12.3 Plt Count 327 Seg Neutrophils % 88.0 H Sodium 138.9 Potassium 4.5 Chloride 106 Carbon Dioxide 22 Anion Gap 11 BUN 13 Creatinine 0.68 Est GFR ( Amer) > 60 Glucose 162 H Lactic Acid 1.6 Calcium 9.3 Total Bilirubin 0.6 AST 24 Alkaline Phosphatase 90 Total Protein 7.5 Albumin 4.3 Urine Color Urine Appearance Urine pH Ur Specific [place] Urine Protein Urine Glucose (UA) Urine Ketones Urine Blood Ur Squamous Epith Cells Blood Type Antibody Screen 10/28/19 10/28/19 10/28/19 04:15 06:22 07:10 WBC RBC Hgb Hct MCV MCH MCHC RDW Plt Count Seg Neutrophils % Sodium Potassium Chloride Carbon Dioxide Anion Gap BUN Creatinine Est GFR ( Amer) Glucose Lactic Acid 1.1 Calcium Total Bilirubin AST Alkaline Phosphatase Total Protein Albumin Urine Color YELLOW Urine Appearance CLEAR Urine pH 7.0 Ur Specific [place] 1.023 Urine Protein NEGATIVE Urine Glucose (UA) NEGATIVE Urine Ketones TRACE H Urine Blood NEGATIVE Ur Squamous Epith Cells FEW Blood Type A POSITIVE Antibody Screen NEGATIVE Impressions: KUB X-Ray 10/28/19 01:20 IMPRESSION: Nonspecific abdomen. Abdomen/Pelvis CT 10/28/19 03:29 IMPRESSION: Circumferential thickening of the rectum with mild adjacent stranding, likely due to proctitis. Fluid within the colon likely related to diarrhea. Ruptured left ovarian cyst. TECHNICAL DOCUMENTATION: Quality ID # 436: Final reports with documentation of one or more dose reduction techniques (e.g., Automated exposure control, adjustment of the mA and/or kV according to patient size, use of iterative reconstruction technique) copyright 2011 [employer]- All Rights Reserved Chest X-Ray 10/28/19 03:30 IMPRESSION: No acute cardiopulmonary abnormality copyright 2010 [employer]- All Rights Reserved Assessment and Plan - Diagnosis (1) Proctitis Is this a current diagnosis for this admission?: Yes Plan: 10/28/2019-patient came in with constipation and rectal bleed CT scan indicates rectal ulcer hemoglobin is stable plan to put her on a regular diet start on IV morphine on as-needed basis GI prophylaxis will be initiated DVT prophylaxis will be on hold there is no need for colonoscopy because she had a colonoscopy 6 months ago which was normal. Plan to repeat the CBC tomorrow. She is admitted observation. (2) Rectal bleeding Is this a current diagnosis for this admission?: Yes Plan: 10/28/2019-patient came in with rectal bleed most likely secondary to rectal ulcer presents on constipation. Hemoglobin 14.6 stable. Plan is to repeat the labs tomorrow. She is also admitted to have hemorrhoids. She refused rectal rectal examination. (3) Leukocytosis Qualifiers: Leukocytosis type: unspecified Qualified Code(s): D72.829 - Elevated white blood cell count, unspecified Is this a current diagnosis for this admission?: Yes Plan: 10/28/2019 patient came in with elevated WBC count of 19,000 and proctitis started on Zosyn. Elevated WBC count most likely secondary to reactive leukocytosis.
[2019-10-28] MEDS ORDERED: ZOLPIDEM TARTRATE 5 MG TABLET PO PRN (09:49)
[2019-10-28] MEDS ORDERED: ONDANSETRON HCL INJ/PF 4 MG/2 ML SDV IV PRN (09:49)
[2019-10-28] MEDS ORDERED: ACETAMINOPHEN 325 MG TABLET PO PRN (09:49)
[2019-10-28] MEDS ORDERED: NICOTINE 21 MG/24 HR PATCH.TD24 TD PRN (09:53)
[2019-10-28] MEDS ORDERED: OXYMETAZOLINE HCL 0.05% NASAL SPRAY 15 ML BOTTLE NASL PRN (09:54)
[2019-10-28] MEDS ORDERED: ALPRAZOLAM 0.5 MG PO PRN (09:54)
[2019-10-28] MEDS ORDERED: ALPRAZOLAM 0.5 MG TABLET PO PRN (10:14)
[2019-10-28] MEDS: MORPHINE SULFATE 10 MG/ML INJ IV PRN ×3 (12:16→21:56)
[2019-10-28] MEDS: PANTOPRAZOLE SODIUM 40 MG TABLET.DR PO SCH (17:15)
[2019-10-28 17:26] LABS: URINE AMPHETAMINES SCREEN NEGATIVE; URINE BARBITURATES SCREEN NEGATIVE; URINE BENZODIAZEPINES SCREEN NEGATIVE; URINE COCAINE SCREEN NEGATIVE; URINE METHADONE SCREEN NEGATIVE; URINE PHENCYCLIDINE SCREEN NEGATIVE
[2019-10-28 17:35] LABS: URINE MARIJUANA (THC) SCREEN UNCONFIRMED POSITIVE
[2019-10-29] MEDS: PANTOPRAZOLE SODIUM 40 MG TABLET.DR PO SCH (05:39)
[2019-10-29] MEDS: MORPHINE SULFATE 10 MG/ML INJ IV PRN ×2 (05:39→10:15)
[2019-10-29 06:28] LABS: ABSOLUTE EOSINOPHILS # (AUTO) 0.2 10^3/uL (0.0-0.6); ABSOLUTE LYMPHOCYTES (AUTO) 3.3 10^3/uL (0.5-4.7); ABSOLUTE MONOCYTES (AUTO) 0.8 10^3/uL (0.1-1.4); ABSOLUTE NEUT (AUTO) 5.3 10^3/uL (1.7-8.2); BASOPHILS % (AUTO) 0.5 % (0-2); EOSINOPHILS % (AUTO) 1.9 % (0-6); HEMATOCRIT 37.1 % (36.0-47.0); HEMOGLOBIN 12.8 g/dL (12.0-15.5); LYMPHOCYTES % (AUTO) 34.3 % (13-45); MEAN CORPUSCULAR HEMOGLOBIN 32.9 pg (27.0-33.4); MEAN CORPUSCULAR HGB CONC 34.6 g/dL (32.0-36.0); MEAN CORPUSCULAR VOLUME 95 fl (80-97); MONOCYTES % (AUTO) 8.4 % (3-13); PLATELET COUNT 298 10^3/uL (150-450); RED CELL DISTRIBUTION WIDTH 12.7 % (11.5-14.0); SEGMENTED NEUTROPHILS % (AUTO) 54.9 % (42-78); TOTAL CELLS COUNTED % (AUTO) 100 %; WHITE BLOOD COUNT 9.6 10^3/uL (4.0-10.5)
[2019-10-29 06:45] LABS: ALBUMIN 3.3 g/dL (3.5-5.0); ALKALINE PHOSPHATASE 64 U/L (38-126); ANION GAP 5 (5-19); ASPARTATE AMINO TRANSFERASE 18 U/L (14-36); BILIRUBIN,TOTAL 0.7 mg/dL (0.2-1.3); BLOOD UREA NITROGEN 5 mg/dL (7-20); CALCIUM 8.2 mg/dL (8.4-10.2); CARBON DIOXIDE 23 mmol/L (22-30); CHLORIDE 111 mmol/L (98-107); CHOLESTEROL 162.03 mg/dL (0-200); GLUCOSE 99 mg/dL (75-110); POTASSIUM 3.9 mmol/L (3.6-5.0); TOTAL PROTEIN 6.3 g/dL (6.3-8.2); TRIGLYCERIDES 137 mg/dL (<150)
[2019-10-29 06:56] LABS: DIRECT LDL 121 mg/dL (<100)
[2019-10-29 09:26] VITALS: BP 123/79
[2019-10-29] MEDS: NORMAL SALINE 1000 ML 1,000 ML IV PRN (10:22)
--- NOTE | 2019-10-29 12:53 | PDOC DISCHARGE SUMMARY ---
Impression - Admit/DC Date/PCP Admission Date/Primary Care Provider: 10/28/19 06:53 ENDER HARDY PA-C Discharge Date: 10/29/19 - Discharge Diagnosis (1) Proctitis Is this a current diagnosis for this admission?: Yes (2) Rectal bleeding Is this a current diagnosis for this admission?: Yes (3) Leukocytosis Is this a current diagnosis for this admission?: Yes - Assessment Summary: (1) Proctitis Is this a current diagnosis for this admission?: Yes Plan: 10/28/2019-patient came in with constipation and rectal bleed CT scan indicates rectal ulcer hemoglobin is stable plan to put her on a regular diet start on IV morphine on as-needed basis GI prophylaxis will be initiated DVT prophylaxis will be on hold there is no need for colonoscopy because she had a colonoscopy 6 months ago which was normal. Plan to repeat the CBC tomorrow. She is admitted observation. 10/29/2019-no active bleeding seen since admission. Patient was given a prescription for levofloxacin 5 mg p.o. daily for 7 days and Anusol hemorrhoidal cream. (2) Rectal bleeding Is this a current diagnosis for this admission?: Yes Plan: 10/28/2019-patient came in with rectal bleed most likely secondary to rectal ulcer presents on constipation. Hemoglobin 14.6 stable. Plan is to repeat the labs tomorrow. She is also admitted to have hemorrhoids. She refused rectal rectal examination. 10/28/2019 hemoglobin is 12.6 stable. No active bleeding is seen during the hospital stay. (3) Leukocytosis Qualifiers: Leukocytosis type: unspecified Qualified Code(s): D72.829 - Elevated white blood cell count, unspecified Is this a current diagnosis for this admission?: Yes Plan: 10/28/2019 patient came in with elevated WBC count of 19,000 and proctitis started on Zosyn. Elevated WBC count most likely secondary to reactive leukocytosis. 10/29/2019 admission WBC is 19,000. With antibiotics WBC count came down to 9600. Plan is to discharge her home on levofloxacin 5 mg p.o. daily for 1 week. - Additional Information Resuscitation Status: Full Code Discharge Diet: Cardiac Referrals: ENDER HARDY PA-C [Primary Care Provider] - Follow up as needed (NO ANSWER AT PROVIDER'S OFFICE. A MESSAGE WAS LEFT FOR OFFICE TO CALL PATIENT WITH A HOSPITAL FOLLOW UP APPT.) Prescriptions: Hydrocortisone Acetate [Anusol Hc 25 mg Supp.rect] 1 supp.rect MS BID #14 supp.rect Levofloxacin [Levaquin 500 mg Tablet] 500 mg PO DAILY 7 Days #7 tablet Home Medications: Alprazolam 0.5 mg PO DAILYP PRN 10/28/19 Oxymetazoline HCl [Afrin 0.05% Nasal [place] 15 ml Bottle] 1 spray NASL ASDIR PRN 10/28/19 Zolpidem Tartrate 10 mg PO HSP PRN 10/28/19 Hydrocortisone Acetate [Anusol Hc 25 mg Supp.rect] 1 supp.rect MS BID #14 supp.rect 10/29/19 Levofloxacin [Levaquin 500 mg Tablet] 500 mg PO DAILY 7 Days #7 tablet 10/29/19 History of Present Illiness History of Present Illness: GEORGES SALDANA is a 39 year old female with history of constipation, intestinal obstruction has a previous colonoscopy in March last year which came back normal at [facility] came to the emergency room with complaints of severe constipation last bowel movement is on Saturday she went to [employer] got [employer] of [employer] and it did not work and she tried for half an hour to check of the stool finally successful later on having the severe pain and noticed blood on the underwear decided to come to the emergency room for further evaluation. CT scan in the ER indicates rectal ulcer with proctitis. Bleeding scan is negative. Patient agreed to stay in the hospital for further management. I discussed about a repeat colonoscopy for the reason of rectal ulcer presence on CT scan she does not want a colonoscopy. According to her she had a colonoscopy in March last year. He said no vomiting denies any nausea denies any fevers. Her main complaints is pain now. Hospital Course Hospital Course: 39 year old female with history of constipation, intestinal obstruction has a previous colonoscopy in March last year which came back normal at [facility] came to the emergency room with complaints of severe constipation last bowel movement is on Saturday she went to [employer] got milk of magnesia and it did not work and she tried for half an hour to check of the stool finally successful later on having the severe pain and noticed blood on the underwear decided to come to the emergency room for further evaluation. CT scan in the ER indicates rectal ulcer with proctitis. Bleeding scan is negative. Patient agreed to stay in the hospital for further management. I discussed about a repeat colonoscopy for the reason of rectal ulcer presence on CT scan she does not want a colonoscopy. According to her she had a colonoscopy in March last year. He said no vomiting denies any nausea denies any fevers. Her main complaints is pain now. 10/29/[id number]-old female with history of constipation, hemodialysis with hemorrhoidectomy, recent colonoscopy in March 2019 which was normal admitted with rectal bleed. Also had a severe constipation and to try to take the stool out and started having the bleeds came to the emergency room. CT scan of the abdomen pelvis in the emergency room indicate proctitis with rectal ulcer. Hemoglobin is stable around 12.6. Patient WBC count is elevated 19,000 at the time of admission came down to 9600. Afebrile. Patient expressing desire to go home. She was strongly advised to follow-up with primary care physician and also follow-up with occupational therapy assistant as soon as possible. She verbalized response and going home today. Physical Exam Vital Signs: Temp Pulse Resp BP Pulse Ox 98.4 F 67 16 123/79 100 10/29/19 07:38 10/29/19 07:38 10/28/19 23:14 10/29/19 07:38 10/29/19 07:38 Intake & Output 10/28/19 10/29/19 10/30/19 06:59 06:59 06:59 Intake Total 2500 1702 983 Balance 2500 1702 983 Weight 85.4 kg 90.1 kg General appearance: PRESENT: no acute distress, well-developed Head exam: PRESENT: atraumatic Eye exam: PRESENT: PERRLA Mouth exam: PRESENT: moist, tongue midline Teeth exam: PRESENT: poor dentation Neck exam: ABSENT: carotid bruit, JVD, lymphadenopathy, thyromegaly Respiratory exam: PRESENT: clear to auscultation kwadwo. ABSENT: rales, rhonchi, wheezes Cardiovascular exam: PRESENT: RRR. ABSENT: diastolic murmur, rubs, systolic murmur GI/Abdominal exam: PRESENT: normal bowel sounds, soft. ABSENT: distended, guarding, mass, organolmegaly, rebound, tenderness Rectal exam: PRESENT: deferred Extremities exam: PRESENT: full ROM. ABSENT: calf tenderness, clubbing, pedal edema Neurological exam: PRESENT: alert, awake, oriented to person, oriented to place, oriented to time, oriented to situation, CN II-XII grossly intact. ABSENT: motor sensory deficit Psychiatric exam: PRESENT: appropriate affect, normal mood. ABSENT: homicidal ideation, suicidal ideation Results Laboratory Results: WBC 9.6 10^3/uL (4.0-10.5) 10/29/19 05:44 RBC 3.90 10^6/uL (3.72-5.28) 10/29/19 05:44 Hgb 12.8 g/dL (12.0-15.5) 10/29/19 05:44 Hct 37.1 % (36.0-47.0) 10/29/19 05:44 MCV 95 fl (80-97) 10/29/19 05:44 MCH 32.9 pg (27.0-33.4) 10/29/19 05:44 MCHC 34.6 g/dL (32.0-36.0) 10/29/19 05:44 RDW 12.7 % (11.5-14.0) 10/29/19 05:44 Plt Count 298 10^3/uL (150-450) 10/29/19 05:44 Lymph % (Auto) 34.3 % (13-45) 10/29/19 05:44 [place] % (Auto) 8.4 % (3-13) 10/29/19 05:44 Eos % (Auto) 1.9 % (0-6) 10/29/19 05:44 Baso % (Auto) 0.5 % (0-2) 10/29/19 05:44 Absolute Neuts (auto) 5.3 10^3/uL (1.7-8.2) 10/29/19 05:44 Absolute Lymphs (auto) 3.3 10^3/uL (0.5-4.7) 10/29/19 05:44 Absolute Monos (auto) 0.8 10^3/uL (0.1-1.4) 10/29/19 05:44 Absolute Eos (auto) 0.2 10^3/uL (0.0-0.6) 10/29/19 05:44 Absolute Basos (auto) 0.0 10^3/uL (0.0-0.2) 10/29/19 05:44 Seg Neutrophils % 54.9 % (42-78) 10/29/19 05:44 Sodium 138.6 mmol/L (137-145) 10/29/19 05:44 Potassium 3.9 mmol/L (3.6-5.0) 10/29/19 05:44 Chloride 111 mmol/L (98-107) H 10/29/19 05:44 Carbon Dioxide 23 mmol/L (22-30) 10/29/19 05:44 Anion Gap 5 (5-19) 10/29/19 05:44 BUN 5 mg/dL (7-20) L 10/29/19 05:44 Creatinine 0.71 mg/dL (0.52-1.25) 10/29/19 05:44 Est GFR ( Amer) > 60 (>60) 10/29/19 05:44 Est GFR (MDRD) Non-Af > 60 (>60) 10/29/19 05:44 Glucose 99 mg/dL (75-110) 10/29/19 05:44 Hemoglobin A1c % 5.9 % (4.7-6.0) 10/29/19 05:44 Lactic Acid 1.5 mmol/L (0.7-2.1) 10/28/19 11:52 Calcium 8.2 mg/dL (8.4-10.2) L 10/29/19 05:44 Magnesium 2.3 mg/dL (1.6-2.3) 10/29/19 05:44 Total Bilirubin 0.7 mg/dL (0.2-1.3) 10/29/19 05:44 Direct Bilirubin 0.0 mg/dL (0.0-0.4) 10/29/19 05:44 Neonat Total Bilirubin Not Reportable 10/29/19 05:44 Neonat Direct Bilirubin Not Reportable 10/29/19 05:44 Neonat Indirect Bili Not Reportable 10/29/19 05:44 AST 18 U/L (14-36) 10/29/19 05:44 ALT 18 U/L (<35) 10/29/19 05:44 Alkaline Phosphatase 64 U/L (38-126) 10/29/19 05:44 Total Protein 6.3 g/dL (6.3-8.2) 10/29/19 05:44 Albumin 3.3 g/dL (3.5-5.0) L 10/29/19 05:44 Triglycerides 137 mg/dL (<150) 10/29/19 05:44 Cholesterol 162.03 mg/dL (0-200) 10/29/19 05:44 LDL Cholesterol Direct 121 mg/dL (<100) H 10/29/19 05:44 VLDL Cholesterol 27.0 mg/dL (10-31) 10/29/19 05:44 HDL Cholesterol 32 mg/dL (>40) L 10/29/19 05:44 TSH 2.67 uIU/mL (0.47-4.68) 10/29/19 05:44 Urine Color YELLOW 10/28/19 04:15 Urine Appearance CLEAR 10/28/19 04:15 Urine pH 7.0 (5.0-9.0) 10/28/19 04:15 Ur Specific [place] 1.023 10/28/19 04:15 Urine Protein NEGATIVE mg/dL (NEGATIVE) 10/28/19 04:15 Urine Glucose (UA) NEGATIVE mg/dL (NEGATIVE) 10/28/19 04:15 Urine Ketones TRACE mg/dL (NEGATIVE) H 10/28/19 04:15 Urine Blood NEGATIVE (NEGATIVE) 10/28/19 04:15 Urine Nitrite (Reflex) NEGATIVE (NEGATIVE) 10/28/19 04:15 Urine Bilirubin NEGATIVE (NEGATIVE) 10/28/19 04:15 Urine Urobilinogen NEGATIVE mg/dL (<2.0) 10/28/19 04:15 Leukocyte Esterase Rfl NEGATIVE (NEGATIVE) 10/28/19 04:15 Urine WBC RARE /HPF 10/28/19 04:15 Ur Squamous Epith Cells FEW /HPF 10/28/19 04:15 Urine Mucus 4+ 10/28/19 04:15 Urine Ascorbic Acid NEGATIVE (NEGATIVE) 10/28/19 04:15 Urine Opiates Screen UNCONFIRMED POSITIVE 10/28/19 16:41 Urine Methadone Screen NEGATIVE 10/28/19 16:41 Ur Barbiturates Screen NEGATIVE 10/28/19 16:41 Ur Phencyclidine Scrn NEGATIVE 10/28/19 16:41 Ur Amphetamines Screen NEGATIVE 10/28/19 16:41 U Benzodiazepines Scrn NEGATIVE 10/28/19 16:41 Urine Cocaine Screen NEGATIVE 10/28/19 16:41 U Marijuana (THC) Screen UNCONFIRMED POSITIVE 10/28/19 16:41 Blood Type A POSITIVE 10/28/19 07:10 Antibody Screen NEGATIVE 10/28/19 07:10 Impressions: KUB X-Ray 10/28/19 01:20 IMPRESSION: Nonspecific abdomen. Abdomen/Pelvis CT 10/28/19 03:29 IMPRESSION: Circumferential thickening of the rectum with mild adjacent stranding, likely due to proctitis. Fluid within the colon likely related to diarrhea. Ruptured left ovarian cyst. TECHNICAL DOCUMENTATION: Quality ID # [id number]: Final reports with documentation of one or more dose reduction techniques (e.g., Automated exposure control, adjustment of the mA and/or kV according to patient size, use of iterative reconstruction technique) copyright 2010 [employer]- All Rights Reserved Chest X-Ray 10/28/19 03:30 IMPRESSION: No acute cardiopulmonary abnormality copyright 2010 [employer]- All Rights Reserved Plan Plan of Treatment: Patient was given a prescription for levo floxacillin 40 mg p.o. daily for 7 days. Also given a prescription for Anusol suppositories for her severe constipation and pain. Time Spent: Greater than 30 Minutes Stroke Is this a Stroke Patient?: No Acute Heart Failure - Is this a Heart Failure Patient?: No
== END 2019-10-29 13:57 | disposition home or self-care (01) ==
LOC: ER 21:31 → INTOOBSV 10-28 06:53 → EH 10-28 06:53 → 5 10-28 08:38
PROVIDERS: ADMIT Internal Medicine; ATTEND Internal Medicine
DX: K62.89 Other specified diseases of anus and rectum (principal); K62.5 Hemorrhage of anus and rectum; D72.829 Elevated white blood cell count, unspecified; K59.00 Constipation, unspecified; K62.6 Ulcer of anus and rectum; N83.202 Unspecified ovarian cyst, left side; R10.2 Pelvic and perineal pain; K64.4 Residual hemorrhoidal skin tags; Z87.19 Personal history of other diseases of the digestive system; F17.200 Nicotine dependence, unspecified, uncomplicated; Z90.710 Acquired absence of both cervix and uterus; Z87.442 Personal history of urinary calculi
CPT/HCPCS: 99291; 96361; 96375; 96365; 86900; 86901; 36415 ×2; 87040; 86850; 83605; 83735; 84443; 85025 ×2; 80053 ×2; 81001; 80307; 83036; 80061; 71045; 74018; 74177; G0378 ×3; J1885; J2270 ×2; J1170; J2060; J2405; J7030 ×2; J7040; J2543; J3490 ×2